=== PATIENT | female | born 1960 | race Caucasian/White ===

== ENCOUNTER → 2019-12-09 13:41 | Outpatient (CLI) | payer OTHER, SELFPAY ==
--- NOTE | 2019-12-09 | DI.MRI.S_ITS ---
PROCEDURE: MR SHOULDER RT WO CON INDICATIONS: Pain in right shoulder TECHNIQUE: Noncontrast oblique coronal T2 fast spin echo with fat saturation, oblique sagittal T1 spin echo and T2 fast spin echo with fat saturation, axial T1 spin echo and T2 fast spin echo with fat saturation through the shoulder. COMPARISON: None. FINDINGS: Image quality: Excellent. Rotator cuff: Tendinosis and low to moderate grade articular and bursal surface partial-thickness tear involving distal supraspinatus and infraspinatus at their insertions on humeral head is seen extending to musculotendinous junction. Distal subscapularis tendinosis or low-grade intrasubstance partial-thickness tear is also seen. Sagittal images demonstrate mild to moderate supraspinatus muscle atrophy. Bones and bursae: No bone marrow contusions or fractures. Mild to moderate acromioclavicular joint and glenohumeral joint osteoarthritic changes are seen with downward osteophyte formation compressing on musculotendinous junction of supraspinatus. No pathologic subacromial-subdeltoid or subcoracoid bursal fluid is present. Capsule and soft tissues: In the absence of intra-articular contrast, there is suggestion of focal superior anterior labral tear at 12 to 1:00 position. The glenohumeral ligaments appear intact. Tendinosis and low-grade partial-thickness tear involving proximal intra-articular portion of long head biceps tendon is seen. The rotator interval appears normal, without fibrosis. The coracohumeral ligament is normal in thickness. IMPRESSION: 1. Tendinosis and low to moderate grade articular and bursal surface partial-thickness tear involving distal supraspinatus and infraspinatus extending to musculotendinous junction. 2. Mild to moderate acromioclavicular joint and glenohumeral joint osteoarthritis. 3. Suggestion of focal superior anterior labral tear at 12 to 1:00 position. Suggestion of tendinosis and low-grade partial-thickness tear involving proximal intra-articular portion of long head biceps tendon. Dictated by: Dontrell Briscoe M.D. on 12/11/2019 at 14:59 Approved by: Dontrell Briscoe M.D. on 12/11/2019 at 15:06
== END ==
PROVIDERS: Family Provider Nutritionist; PCP Nutritionist; Visit Provider Physician Assistant
DX: M25.511 Pain in right shoulder (principal); M75.111 Incomplete rotator cuff tear or rupture of right shoulder, not specified as traumatic; M19.011 Primary osteoarthritis, right shoulder
CPT/HCPCS: 73221

== ENCOUNTER 2020-09-04 13:00 | Outpatient (RCR) | payer OTHER, SELFPAY ==
--- NOTE | 2020-05-29 17:49 | PT.OIE ---
Current Diagnoses Pain in right shoulder (05/29/20) Abnormal posture (05/29/20) Visit Care Team Role Provider Type Vale Tovar MD Family Provider Non-Staff Specialty: Family Practice Address: [address] [place] [address], [place], [address] Email: Steven Parks PA-C Attending Provider Non-Staff Primary Care Provider Referring Provider Specialty: Medical Address: [address] [place] [address], [id number] Email: Physical Therapy Initial Evaluation PT-OP-A Visit Information Start: 05/29/20 13:11 Freq: Status: Active Protocol: Document 05/29/20 13:14 AW (Rec: 05/29/20 13:21 AW [id number]) Out-Patient Physical Therapy Visit Information Visit Information Visit Type Initial Evaluation Visit Start Time 15:15 Visit Stop Time 16:00 Total Visit Minutes 45 Visit Number 1 Evaluation Information Evaluation Date 05/29/20 PT-OP-B Current Condition Start: 05/29/20 13:11 Freq: Status: Active Protocol: Document 05/29/20 13:14 AW (Rec: 05/29/20 13:21 AW [id number]) Current Condition History of Current Condition Onset Date 1.5 years ago Current Complaints right shoulder pain History of Current Condition Pt reports gradual onset right shoulder pain worsening over the past 1.5 years. She has chronic neck pain but I just live with it. She states she has had a forced period of rest for her shoulder due to COVID stay at home order. 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 She fears she may not have a job to return to which is increasing her stress. Pt reports increased pain with heavy lifting and overhead movement. It feels like my arm is going to fall out of the socket. She takes tramadol during day and methocarbamol at night which help with her pain. Her pain gets as bad as 10/10 and is affecting her sleep. She is unable to sleep on her right side at all. She has had some difficulty with upper body dressing tasks but this has improved somewhat with rest over the last few months She lives alone with her rat terrier. She has been doing gentle yoga at home with modifications for her shoulder . Prior Treatments and Tests -PT for neck 20 years ago -MRI 12/09/19 1. Tendinosis and low to moderate grade articular and bursal surface partial- thickness tear involving distal supraspinatus and infraspinatus extending to musculotendinous junction. 2. Mild to moderate acromioclavicular joint and glenohumeral joint osteoarthritis. 3. Suggestion of focal superior anterior labral tear at 12 to 1:00 position. Suggestion of tendinosis and low-grade partial-thickness tear involving proximal intra- articular portion of long head biceps tendon. Future Testing and Treatments Planned Pt is considering surgery Treatment Goals Patient/Caregiver Goals Pt hopes to improve her upper body strength. Ultimately, she hopes to avoid surgery, but she expresses skepticism about the efficacy of physical therapy. 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 Baseline Function- Recreation/Hobbies Yoga and light weightlifting at home PT-OP-C Subjective Start: 05/29/20 13:11 Freq: Status: Active Protocol: Document 05/29/20 13:14 AW (Rec: 05/30/20 17:32 AW [id number]) Patient Questionnaires Quick Dash- Upper Extremity Quick Dash UE Score 43 Quick Dash UE Impairment 40 to 59% Impaired (Score 40- 59) OP-PT Pain Assessment Pain Assessment Grid Paper Pain Assessment Grid Completed Yes Home Pain Medication Use Pain Medications Used Yes Home Pain Medication Frequency tramadol and methocarbamol Patient Goal reduce use Comments Pain Comments Pain centered around anterior right shoulder and upper chest wall/pec major and minor PT-OP-F Manual Assessment Start: 05/29/20 13:11 Freq: Status: Active Protocol: Document 05/29/20 13:14 AW (Rec: 05/30/20 17:32 AW [id number]) Manual Assessments Soft Tissue Assessment Soft Tissue Mobility Assessment Tight and tender to palpation at insertion of infraspinatus/ supraspinatus. Tender and painful pec major and minor Joint Mobility Assessment Joint Mobility Assessment Reduced and painful posterior glides R GH joint PT-OP-H Neuro Start: 05/29/20 13:11 Freq: Status: Active Protocol: Document 05/29/20 13:14 AW (Rec: 05/30/20 17:32 AW [id number]) Sensation Evaluation Gross Sensation Gross Sensation Left UE Impaired,Right UE Impaired Sensation Description Numbness,Tingling,Pins & [place] Comments Summary Comments Pt reports history of bilateral UE paresthesias but that they have improved over the years. Minimal complaints at this time. Deep Tendon Reflex & Clonus Assessment Deep Tendon Reflex Bilateral Tricep Deep Tendon Reflex 1+ Diminished Bilateral Bicep Deep Tendon Reflex 2+ Normal PT-OP-J Posture/Palpation/Skin Start: 05/29/20 13:11 Freq: Status: Active Protocol: Document 05/29/20 13:14 AW (Rec: 05/30/20 17:32 AW [id number]) Posture Evaluation Position Sitting Evaluation View posterior and lateral Head/C-Spine Posture Extended Shoulder Posture (L) Rounded,(R) Rounded,(L) Forward,(R) Forward Scapula Posture (L) Protracted,(R) Protracted, (L) Winged,(R) Winged Arm Posture (L) Internally Rotated,(R) Internally Rotated Comments Posture Comments Winged and protracted scapulae at rest. Rounded shoulders bilaterally. PT-OP-K Range of Motion Start: 05/29/20 13:11 Freq: Status: Active Protocol: Document 05/29/20 13:14 AW (Rec: 05/30/20 17:32 AW [id number]) Cervical Spine Range of Motion Cervical Spine Active Degrees Testing Position Sitting Flexion 40 Extension 40 Rotation Left 35 Rotation Right 40 Lateral Flexion Left 25 Lateral Flexion Right 25 ROM Limitations Soft Tissue Tightness Shoulder Goniometric Range of Motion Shoulder Right Active Flexion 155 Extension 30 Abduction 140 External Rotation at 90 degrees 60 Abduction Internal Rotation Behind Back (text) T10 Left Active Flexion 165 Extension 40 Abduction 165 External Rotation at 90 degrees 80 Abduction Internal Rotation Behind Back (text) T6 Shoulder ROM Limitations Shoulder ROM Limitations Pain Elbow/Forearm Range of Motion Elbow/Forearm ROM Limitations Comments Elbow AROM WNL PT-OP-L Special Tests Start: 05/29/20 13:11 Freq: Status: Active Protocol: Document 05/29/20 13:14 AW (Rec: 05/30/20 17:32 AW [id number]) Special Tests Shoulder Special Tests [place] Impingement Test Results R (+) Comments mildly painful with scapular stabilization. Also performed infraspinatus MMT which was positive on the right side for pain and painful arc which was positive on the right side. Drop Arm Rotator Cuff Test Results R (+) Comments able to hold but with shoulder shrugging and pain PT-OP-M Strength Start: 05/29/20 13:11 Freq: Status: Active Protocol: Document 05/29/20 13:14 AW (Rec: 05/30/20 17:32 AW [id number]) Scapula Strength Scapula Manual Muscle Testing Right Comments 4/5 protraction bilaterally Shoulder Strength Shoulder Manual Muscle Testing Right Flexion 4 Good Extension 4+ Good+ Abduction (C5) 4 Good External Rotation 4 Good Internal Rotation 4 Good Left Flexion 5 Normal Extension 5 Normal Abduction (C5) 5 Normal External Rotation 4+ Good+ Internal Rotation 5 Normal Elbow/Forearm Strength Elbow and Forearm Manual Muscle Testing Right Comments Grossly 4+/5 bilaterally PT-OP-Q Treatments Start: 05/29/20 13:11 Freq: Status: Active Protocol: Document 05/29/20 13:14 AW (Rec: 05/30/20 17:32 AW [id number]) Therapeutic Exercises Supine Exercises scapular protraction Supine Exercise Name scapular protraction Side bilateral Reps/Minutes 10 reps x 2 Comments no resistance in clinic but pt encouraged to use soup cans at home AAROM flexion Supine Exercise Name AAROM flexion Side right Equipment Used dowel Reps/Minutes 10 reps x 2 Comments cues to drive movement with left arm and to avoid painful ROM Sitting Exercises scapular retraction Sitting Exercise Name scapular retraction Side bilateral Reps/Minutes 10 reps x 2 Comments cues to gentle, sustainable movement and hold Self-Care/Home Management Treatment Education Patient Education Home Exercise Program Activities Self-Care/Home Management Activities - AAROM flexion R shoulder - supine scapular protraction - seated scapular retraction PT-OP-T Assessment and Plan Start: 05/29/20 13:11 Freq: Status: Active Protocol: Document 05/29/20 13:14 AW (Rec: 05/30/20 17:48 AW [id number]) Physical Therapy Assessment Rehab Potential Rehabilitation Potential Good Evaluation Complexity Number of Personal Factors/Comorbidities 1-2 Number of Body Systems Impaired 1-2 Clinical Presentation at Evaluation Stable Impairments Impairments Functional Activities,Pain, Posture,ROM,Sensation,Soft Tissue Mobility,Strength Other Concerns Barriers to Rehabilitation Pt expresses skepticism regarding efficacy of physical therapy and believes surgery may be her best option. Goals Four Impairment sleep Short Term Goal (STG) Pt will implement sleep positioning strategies for reduced pain and improved restfulness of sleep STG Duration 06/26/20 Three Impairment pt unable to participate in yoga and other desired activities due to pain Short Term Goal (STG) Pt will be independent with [facility] for support of therapy services provide in clinic STG Duration 06/26/20 Fdc Goal (LTG) Pt will be able to tolerate prone and quadruped yoga poses with modifications without increasing pain LTG Duration 07/24/20 Two Impairment pt scores 43% impairment on quickDASH Short Term Goal (STG) Pt will score 35% impairment or lower for improved ability to return to work STG Duration 06/26/20 Fdc Goal (LTG) Pt will score 25% impairment or lower for improved ability to return to work LTG Duration 07/24/20 One Impairment ROM Short Term Goal (STG) Pt will improve pain-free R GH abduction to 150 or greater to demonstrate improved ability to participate in daily activities. STG Duration 06/26/20 Stock And Station Agent Goal (LTG) Pt will improve pain-free R GH abduction to 160 or greater to demonstrate improved ability to participate in daily activities. LTG Duration 07/24/20 Assessment Summary Assessment Anjali is a 60 yo woman seen for PT evaluation in the outpatient setting with complaints of gradual onset right shoulder pain. 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 She believes the forced rest over the past few months of layoffs has improved her shoulder mobility and reduced her pain, but she would like to regain full function of her shoulder to improve her ability to perform job duties and to participate in recreational activities such as yoga which have a positive impact on her sense of well-being. Pt will benefit from outpatient PT to restore range of motion, strength, and function in her right shoulder. Physical Therapy Plan Frequency and Duration Frequency of Treatment 1-2x/week Duration of Treatment up to 15 visits per current [place] authorization Plan of Care Start Date 05/29/20 Plan of Care End Date 07/24/20 Therapeutic Interventions Therapeutic Interventions Home Exercise Program,Joint Mobilizations,Manual Therapy, Neuromuscular Re-education, Patient/Caregiver Education, Soft Tissue Mobilization, Taping,Therapeutic Activities, Therapeutic Exercises Modalities Cold Pack/Ice Massage,Hot Packs Next Visit Focus/Plan Next Note Type Treatment Note Next Visit Plan assess response to HEP provided at eval; joint mobilization for right shoulder posterior and inferior glide; ther ex as tolerated for ROM and strength
--- NOTE | 2020-05-29 17:50 | PT.OPPOC ---
Physical, Occupational & Speech Therapy At [facility] Current Diagnoses Pain in right shoulder (05/29/20) Abnormal posture (05/29/20) Visit Care Team Role Provider Type Vale Tovar MD Family Provider Non-Staff Specialty: Family Practice Address: [address] [place] [address], [address] Email: Steven Parks PA-C Attending Provider Non-Staff Primary Care Provider Referring Provider Specialty: Medical Address: [address] [place] [address], [id number] Email: Plan Of Care PT-OP-T Assessment and Plan Start: 05/29/20 13:11 Freq: Status: Active Protocol: Document 05/29/20 13:14 AW (Rec: 05/30/20 17:48 AW [id number]) Physical Therapy Assessment Rehab Potential Rehabilitation Potential Good Evaluation Complexity Number of Personal Factors/Comorbidities 1-2 Number of Body Systems Impaired 1-2 Clinical Presentation at Evaluation Stable Impairments Impairments Functional Activities,Pain, Posture,ROM,Sensation,Soft Tissue Mobility,Strength Other Concerns Barriers to Rehabilitation Pt expresses skepticism regarding efficacy of physical therapy and believes surgery may be her best option. Goals Four Impairment sleep Short Term Goal (STG) Pt will implement sleep positioning strategies for reduced pain and improved restfulness of sleep STG Duration 06/26/20 Three Impairment pt unable to participate in yoga and other desired activities due to pain Short Term Goal (STG) Pt will be independent with [facility] for support of therapy services provide in clinic STG Duration 06/26/20 Fpc Goal (LTG) Pt will be able to tolerate prone and quadruped yoga poses with modifications without increasing pain LTG Duration 07/24/20 Two Impairment pt scores 43% impairment on quickDASH Short Term Goal (STG) Pt will score 35% impairment or lower for improved ability to return to work STG Duration 06/26/20 Fpc Goal (LTG) Pt will score 25% impairment or lower for improved ability to return to work LTG Duration 07/24/20 One Impairment ROM Short Term Goal (STG) Pt will improve pain-free R GH abduction to 150 or greater to demonstrate improved ability to participate in daily activities. STG Duration 06/26/20 Can Closing Machine Operator Goal (LTG) Pt will improve pain-free R GH abduction to 160 or greater to demonstrate improved ability to participate in daily activities. LTG Duration 07/24/20 Assessment Summary Assessment Anjali is a 60 yo woman seen for PT evaluation in the outpatient setting with complaints of gradual onset right shoulder pain. 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 She believes the forced rest over the past few months of layoffs has improved her shoulder mobility and reduced her pain, but she would like to regain full function of her shoulder to improve her ability to perform job duties and to participate in recreational activities such as yoga which have a positive impact on her sense of well-being. Pt will benefit from outpatient PT to restore range of motion, strength, and function in her right shoulder. Physical Therapy Plan Frequency and Duration Frequency of Treatment 1-2x/week Duration of Treatment up to 15 visits per current [place] Plan of Care Start Date 05/29/20 Plan of Care End Date 07/24/20 Therapeutic Interventions Therapeutic Interventions Home Exercise Program,Joint Mobilizations,Manual Therapy, Neuromuscular Re-education, Patient/Caregiver Education, Soft Tissue Mobilization, Taping,Therapeutic Activities, Therapeutic Exercises Modalities Cold Pack/Ice Massage,Hot Packs Next Visit Focus/Plan Next Note Type Treatment Note Next Visit Plan assess response to HEP provided at eval; joint mobilization for right shoulder posterior and inferior glide; ther ex as tolerated for ROM and strength Plan of Care Dates Plan of Care Start Date 05/29/20 Plan of Care End Date 07/24/20 Electronically Signed by: Crystal Trejo PT 05/30/20 [id number] Please Sign and Return: I have reviewed this Plan of Care and certify that the skilled therapy services above are required to meet the patient?s needs. Physician Signature Date Printed Name and Credentials Clinical Instructor Signature Printed Name and Credentials
--- NOTE | 2020-05-30 17:50 | PT.OPPOC ---
Physical, Occupational & Speech Therapy At [facility] Current Diagnoses Pain in right shoulder (05/29/20) Abnormal posture (05/29/20) Visit Care Team Role Provider Type Vale Tovar MD Family Provider Non-Staff Specialty: Family Practice Address: [address] [place] [address], [id number] Email: Steven Parks PA-C Attending Provider Non-Staff Primary Care Provider Referring Provider Specialty: Medical Address: [address] [place] [address], [address] Email: Plan Of Care PT-OP-T Assessment and Plan Start: 05/29/20 13:11 Freq: Status: Active Protocol: Document 05/29/20 13:14 AW (Rec: 05/30/20 17:48 AW [id number]) Physical Therapy Assessment Rehab Potential Rehabilitation Potential Good Evaluation Complexity Number of Personal Factors/Comorbidities 1-2 Number of Body Systems Impaired 1-2 Clinical Presentation at Evaluation Stable Impairments Impairments Functional Activities,Pain, Posture,ROM,Sensation,Soft Tissue Mobility,Strength Other Concerns Barriers to Rehabilitation Pt expresses skepticism regarding efficacy of physical therapy and believes surgery may be her best option. Goals Four Impairment sleep Short Term Goal (STG) Pt will implement sleep positioning strategies for reduced pain and improved restfulness of sleep STG Duration 06/26/20 Three Impairment pt unable to participate in yoga and other desired activities due to pain Short Term Goal (STG) Pt will be independent with [facility] for support of therapy services provide in clinic STG Duration 06/26/20 Correction Goal (LTG) Pt will be able to tolerate prone and quadruped yoga poses with modifications without increasing pain LTG Duration 07/24/20 Two Impairment pt scores 43% impairment on quickDASH Short Term Goal (STG) Pt will score 35% impairment or lower for improved ability to return to work STG Duration 06/26/20 Correction Goal (LTG) Pt will score 25% impairment or lower for improved ability to return to work LTG Duration 07/24/20 One Impairment ROM Short Term Goal (STG) Pt will improve pain-free R GH abduction to 150 or greater to demonstrate improved ability to participate in daily activities. STG Duration 06/26/20 Patrol Supervisor Goal (LTG) Pt will improve pain-free R GH abduction to 160 or greater to demonstrate improved ability to participate in daily activities. LTG Duration 07/24/20 Assessment Summary Assessment Anjali is a 60 yo woman seen for PT evaluation in the outpatient setting with complaints of gradual onset right shoulder pain. 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 She believes the forced rest over the past few months of layoffs has improved her shoulder mobility and reduced her pain, but she would like to regain full function of her shoulder to improve her ability to perform job duties and to participate in recreational activities such as yoga which have a positive impact on her sense of well-being. Pt will benefit from outpatient PT to restore range of motion, strength, and function in her right shoulder. Physical Therapy Plan Frequency and Duration Frequency of Treatment 1-2x/week Duration of Treatment up to 15 visits per current [place] Plan of Care Start Date 05/29/20 Plan of Care End Date 07/24/20 Therapeutic Interventions Therapeutic Interventions Home Exercise Program,Joint Mobilizations,Manual Therapy, Neuromuscular Re-education, Patient/Caregiver Education, Soft Tissue Mobilization, Taping,Therapeutic Activities, Therapeutic Exercises Modalities Cold Pack/Ice Massage,Hot Packs Next Visit Focus/Plan Next Note Type Treatment Note Next Visit Plan assess response to HEP provided at eval; joint mobilization for right shoulder posterior and inferior glide; ther ex as tolerated for ROM and strength Plan of Care Dates Plan of Care Start Date 05/29/20 Plan of Care End Date 07/24/20 Electronically Signed by: Crystal Trejo PT 05/30/20 [id number] Please Sign and Return: I have reviewed this Plan of Care and certify that the skilled therapy services above are required to meet the patient?s needs. Physician Signature Date Printed Name and Credentials Clinical Instructor Signature Printed Name and Credentials
--- NOTE | 2020-05-31 09:07 | PT.OTN ---
Current Diagnoses Pain in right shoulder (05/31/20) Abnormal posture (05/31/20) Physical Therapy Treatment Note PT-OP-A Visit Information Start: 05/29/20 13:11 Freq: Status: Active Protocol: Document 05/31/20 08:15 LRN (Rec: 05/31/20 08:50 LRN [id number]) Out-Patient Physical Therapy Visit Information Visit Information Visit Type Treatment Note Visit Start Time 08:15 Visit Stop Time 09:00 Total Visit Minutes 45 Visit Number 2 Evaluation Information Evaluation Date 05/29/20 PT-OP-B Current Condition Start: 05/29/20 13:11 Freq: Status: Active Protocol: Document 05/29/20 13:14 AW (Rec: 05/29/20 13:21 AW [id number]) Current Condition History of Current Condition Onset Date 1.5 years ago Current Complaints right shoulder pain History of Current Condition Pt reports gradual onset right shoulder pain worsening over the past 1.5 years. She has chronic neck pain but I just live with it. She states she has had a forced period of rest for her shoulder due to COVID stay at home order. 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 She fears she may not have a job to return to which is increasing her stress. Pt reports increased pain with heavy lifting and overhead movement. It feels like my arm is going to fall out of the socket. She takes tramadol during day and methocarbamol at night which help with her pain. Her pain gets as bad as 10/10 and is affecting her sleep. She is unable to sleep on her right side at all. She has had some difficulty with upper body dressing tasks but this has improved somewhat with rest over the last few months She lives alone with her rat terrier. She has been doing gentle yoga at home with modifications for her shoulder . Prior Treatments and Tests -PT for neck 20 years ago -MRI 12/09/19 1. Tendinosis and low to moderate grade articular and bursal surface partial- thickness tear involving distal supraspinatus and infraspinatus extending to musculotendinous junction. 2. Mild to moderate acromioclavicular joint and glenohumeral joint osteoarthritis. 3. Suggestion of focal superior anterior labral tear at 12 to 1:00 position. Suggestion of tendinosis and low-grade partial-thickness tear involving proximal intra- articular portion of long head biceps tendon. Future Testing and Treatments Planned Pt is considering surgery Treatment Goals Patient/Caregiver Goals Pt hopes to improve her upper body strength. Ultimately, she hopes to avoid surgery, but she expresses skepticism about the efficacy of physical therapy. 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 Sore. 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 PT-OP-F Manual Assessment Start: 05/29/20 13:11 Freq: Status: Active Protocol: Document 05/29/20 13:14 AW (Rec: 05/30/20 17:32 AW [id number]) Manual Assessments Soft Tissue Assessment Soft Tissue Mobility Assessment Tight and tender to palpation at insertion of infraspinatus/ supraspinatus. Tender and painful pec major and minor Joint Mobility Assessment Joint Mobility Assessment Reduced and painful posterior glides R GH joint PT-OP-H Neuro Start: 05/29/20 13:11 Freq: Status: Active Protocol: Document 05/29/20 13:14 AW (Rec: 05/30/20 17:32 AW [id number]) Sensation Evaluation Gross Sensation Gross Sensation Left UE Impaired,Right UE Impaired Sensation Description Numbness,Tingling,Pins & [place] Comments Summary Comments Pt reports history of bilateral UE paresthesias but that they have improved over the years. Minimal complaints at this time. Deep Tendon Reflex & Clonus Assessment Deep Tendon Reflex Bilateral Tricep Deep Tendon Reflex 1+ Diminished Bilateral Bicep Deep Tendon Reflex 2+ Normal PT-OP-J Posture/Palpation/Skin Start: 05/29/20 13:11 Freq: Status: Active Protocol: Document 05/29/20 13:14 AW (Rec: 05/30/20 17:32 AW [id number]) Posture Evaluation Position Sitting Evaluation View posterior and lateral Head/C-Spine Posture Extended Shoulder Posture (L) Rounded,(R) Rounded,(L) Forward,(R) Forward Scapula Posture (L) Protracted,(R) Protracted, (L) Winged,(R) Winged Arm Posture (L) Internally Rotated,(R) Internally Rotated Comments Posture Comments Winged and protracted scapulae at rest. Rounded shoulders bilaterally. PT-OP-K Range of Motion Start: 05/29/20 13:11 Freq: Status: Active Protocol: Document 05/29/20 13:14 AW (Rec: 05/30/20 17:32 AW [id number]) Cervical Spine Range of Motion Cervical Spine Active Degrees Testing Position Sitting Flexion 40 Extension 40 Rotation Left 35 Rotation Right 40 Lateral Flexion Left 25 Lateral Flexion Right 25 ROM Limitations Soft Tissue Tightness Shoulder Goniometric Range of Motion Shoulder Right Active Flexion 155 Extension 30 Abduction 140 External Rotation at 90 degrees 60 Abduction Internal Rotation Behind Back (text) T10 Left Active Flexion 165 Extension 40 Abduction 165 External Rotation at 90 degrees 80 Abduction Internal Rotation Behind Back (text) T6 Shoulder ROM Limitations Shoulder ROM Limitations Pain Elbow/Forearm Range of Motion Elbow/Forearm ROM Limitations Comments Elbow AROM WNL PT-OP-L Special Tests Start: 05/29/20 13:11 Freq: Status: Active Protocol: Document 05/29/20 13:14 AW (Rec: 05/30/20 17:32 AW [id number]) Special Tests Shoulder Special Tests Bishop Tommy Impingement Test Results R (+) Comments mildly painful with scapular stabilization. Also performed infraspinatus MMT which was positive on the right side for pain and painful arc which was positive on the right side. Drop Arm Rotator Cuff Test Results R (+) Comments able to hold but with shoulder shrugging and pain PT-OP-M Strength Start: 05/29/20 13:11 Freq: Status: Active Protocol: Document 05/29/20 13:14 AW (Rec: 05/30/20 17:32 AW [id number]) Scapula Strength Scapula Manual Muscle Testing Right Comments 4/5 protraction bilaterally Shoulder Strength Shoulder Manual Muscle Testing Right Flexion 4 Good Extension 4+ Good+ Abduction (C5) 4 Good External Rotation 4 Good Internal Rotation 4 Good Left Flexion 5 Normal Extension 5 Normal Abduction (C5) 5 Normal External Rotation 4+ Good+ Internal Rotation 5 Normal Elbow/Forearm Strength Elbow and Forearm Manual Muscle Testing Right Comments Grossly 4+/5 bilaterally PT-OP-Q Treatments Start: 05/29/20 13:11 Freq: Status: Active Protocol: Document 05/31/20 08:15 LRN (Rec: 05/31/20 08:50 LRN [id number]) Therapeutic Exercises Supine Exercises Chest press Supine Exercise Name Chest press Side bilateral Reps/Minutes 12x Comments Pt was stopped due to pain Windshield wipe Supine Exercise Name Active shoulder ER/IR Side right Reps/Minutes 3' Comments Moving slowly and cautiously Shoulder ER Supine Exercise Name Cane stretch Side right Reps/Minutes 3' Comments Cues to avoid pain, training for limit of range. scapular protraction Supine Exercise Name scapular protraction Side right Reps/Minutes 10 reps x 2 Comments no resistance in clinic but pt encouraged to use soup cans at home AAROM flexion Supine Exercise Name AAROM flexion Side right Equipment Used dowel Reps/Minutes 10 Hold x 10 Comments cues to drive movement with left arm and to avoid painful ROM Sitting Exercises scapular retraction Sitting Exercise Name scapular retraction Side bilateral Reps/Minutes 10 reps x 2 Comments cues to gentle, sustainable movement and hold PT-OP-R Modalities Start: 05/29/20 13:11 Freq: Status: Active Protocol: Document 05/31/20 08:15 LRN (Rec: 05/31/20 08:52 LRN [id number]) Ultrasound Therapy Treatment Right Anterior Shoulder Treatment Duration (minutes) 8 Patient Position Supine Coupling Medium Ultrasound Gel Frequency Setting (mHz) 3 Mode Setting Pulsed Duty Cycle 50% Intensity Setting (w/cm2) 1.0 PT-OP-T Assessment and Plan Start: 05/29/20 13:11 Freq: Status: Active Protocol: Document 05/31/20 08:15 LRN (Rec: 05/31/20 08:50 LRN [id number]) Physical Therapy Assessment Goals Four Impairment sleep Short Term Goal (STG) Pt will implement sleep positioning strategies for reduced pain and improved restfulness of sleep STG Duration 06/26/20 Three Impairment pt unable to participate in yoga and other desired activities due to pain Short Term Goal (STG) Pt will be independent with HEP for support of therapy services provide in clinic STG Duration 06/26/20 Retirement Goal (LTG) Pt will be able to tolerate prone and quadruped yoga poses with modifications without increasing pain LTG Duration 07/24/20 Two Impairment pt scores 43% impairment on quickDASH Short Term Goal (STG) Pt will score 35% impairment or lower for improved ability to return to work STG Duration 06/26/20 Retirement Goal (LTG) Pt will score 25% impairment or lower for improved ability to return to work LTG Duration 07/24/20 One Impairment ROM Short Term Goal (STG) Pt will improve pain-free R GH abduction to 150 or greater to demonstrate improved ability to participate in daily activities. 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 LTG Duration 07/24/20 Assessment Summary Assessment Good tolerance to HEP. Improved mobility after ultrasound. Pt feels R UT is increased in temp; therefore US may be helpful there. Physical Therapy Plan Frequency and Duration Frequency of Treatment 1-2x/week Duration of Treatment up to 15 visits per current [facility] authorization Plan of Care Start Date 05/29/20 Plan of Care End Date 07/24/20 Next Visit Focus/Plan Next Note Type Treatment Note Next Visit Plan assess response to new ex's ( supine windshield wipe & chest press); ?joint mobilization for right shoulder posterior and inferior glide; ther ex as tolerated for ROM and strength. Try US to R UT and anterior shoulder for pain.
--- NOTE | 2020-06-03 08:40 | PT-OP ANOTE ---
Pt did not show for today's appt, called and pt stated over slept and had shingle vaccination last fri sore and still recovering form. Confirmed next appt 06/06/20.
--- NOTE | 2020-06-06 09:00 | PT.OTN ---
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 She has chronic neck pain but I just live with it. She states she has had a forced period of rest for her shoulder due to COVID stay at home order. 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 She fears she may not have a job to return to which is increasing her stress. Pt reports increased pain with heavy lifting and overhead movement. It feels like my arm is going to fall out of the socket. She takes tramadol during day and methocarbamol at night which help with her pain. Her pain gets as bad as 10/10 and is affecting her sleep. She is unable to sleep on her right side at all. She has had some difficulty with upper body dressing tasks but this has improved somewhat with rest over the last few months She lives alone with her rat terrier. She has been doing gentle yoga at home with modifications for her shoulder . Prior Treatments and Tests -PT for neck 20 years ago -MRI 12/09/19 1. Tendinosis and low to moderate grade articular and bursal surface partial- thickness tear involving distal supraspinatus and infraspinatus extending to musculotendinous junction. 2. Mild to moderate acromioclavicular joint and glenohumeral joint osteoarthritis. 3. Suggestion of focal superior anterior labral tear at 12 to 1:00 position. Suggestion of tendinosis and low-grade partial-thickness tear involving proximal intra- articular portion of long head biceps tendon. Future Testing and Treatments Planned Pt is considering surgery Treatment Goals Patient/Caregiver Goals Pt hopes to improve her upper body strength. Ultimately, she hopes to avoid surgery, but she expresses skepticism about the efficacy of physical therapy. 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 Not been compliant with HEP. [place] US was very helpful last tx. PT-OP-F Manual Assessment Start: 05/29/20 13:11 Freq: Status: Active Protocol: Document 05/29/20 13:14 AW (Rec: 05/30/20 17:32 AW [id number]) Manual Assessments Soft Tissue Assessment Soft Tissue Mobility Assessment Tight and tender to palpation at insertion of infraspinatus/ supraspinatus. Tender and painful pec major and minor Joint Mobility Assessment Joint Mobility Assessment Reduced and painful posterior glides R GH joint PT-OP-H Neuro Start: 05/29/20 13:11 Freq: Status: Active Protocol: Document 05/29/20 13:14 AW (Rec: 05/30/20 17:32 AW [id number]) Sensation Evaluation Gross Sensation Gross Sensation Left UE Impaired,Right UE Impaired Sensation Description Numbness,Tingling,Pins & [place] Comments Summary Comments Pt reports history of bilateral UE paresthesias but that they have improved over the years. Minimal complaints at this time. Deep Tendon Reflex & Clonus Assessment Deep Tendon Reflex Bilateral Tricep Deep Tendon Reflex 1+ Diminished Bilateral Bicep Deep Tendon Reflex 2+ Normal PT-OP-J Posture/Palpation/Skin Start: 05/29/20 13:11 Freq: Status: Active Protocol: Document 05/29/20 13:14 AW (Rec: 05/30/20 17:32 AW [id number]) Posture Evaluation Position Sitting Evaluation View posterior and lateral Head/C-Spine Posture Extended Shoulder Posture (L) Rounded,(R) Rounded,(L) Forward,(R) Forward Scapula Posture (L) Protracted,(R) Protracted, (L) Winged,(R) Winged Arm Posture (L) Internally Rotated,(R) Internally Rotated Comments Posture Comments Winged and protracted scapulae at rest. Rounded shoulders bilaterally. PT-OP-K Range of Motion Start: 05/29/20 13:11 Freq: Status: Active Protocol: Document 05/29/20 13:14 AW (Rec: 05/30/20 17:32 AW [id number]) Cervical Spine Range of Motion Cervical Spine Active Degrees Testing Position Sitting Flexion 40 Extension 40 Rotation Left 35 Rotation Right 40 Lateral Flexion Left 25 Lateral Flexion Right 25 ROM Limitations Soft Tissue Tightness Shoulder Goniometric Range of Motion Shoulder Right Active Flexion 155 Extension 30 Abduction 140 External Rotation at 90 degrees 60 Abduction Internal Rotation Behind Back (text) T10 Left Active Flexion 165 Extension 40 Abduction 165 External Rotation at 90 degrees 80 Abduction Internal Rotation Behind Back (text) T6 Shoulder ROM Limitations Shoulder ROM Limitations Pain Elbow/Forearm Range of Motion Elbow/Forearm ROM Limitations Comments Elbow AROM WNL PT-OP-L Special Tests Start: 05/29/20 13:11 Freq: Status: Active Protocol: Document 05/29/20 13:14 AW (Rec: 05/30/20 17:32 AW [id number]) Special Tests Shoulder Special Tests Bishop Tommy Impingement Test Results R (+) Comments mildly painful with scapular stabilization. Also performed infraspinatus MMT which was positive on the right side for pain and painful arc which was positive on the right side. Drop Arm Rotator Cuff Test Results R (+) Comments able to hold but with shoulder shrugging and pain PT-OP-M Strength Start: 05/29/20 13:11 Freq: Status: Active Protocol: Document 05/29/20 13:14 AW (Rec: 05/30/20 17:32 AW [id number]) Scapula Strength Scapula Manual Muscle Testing Right Comments 4/5 protraction bilaterally Shoulder Strength Shoulder Manual Muscle Testing Right Flexion 4 Good Extension 4+ Good+ Abduction (C5) 4 Good External Rotation 4 Good Internal Rotation 4 Good Left Flexion 5 Normal Extension 5 Normal Abduction (C5) 5 Normal External Rotation 4+ Good+ Internal Rotation 5 Normal Elbow/Forearm Strength Elbow and Forearm Manual Muscle Testing Right Comments Grossly 4+/5 bilaterally PT-OP-Q Treatments Start: 05/29/20 13:11 Freq: Status: Active Protocol: Document 06/06/20 08:21 SP (Rec: 06/06/20 09:04 SP [id number]) Therapeutic Exercises Supine Exercises Chest press Supine Exercise Name Chest press Side bilateral Reps/Minutes 12x Comments Pt was stopped due to pain Windshield wipe Supine Exercise Name Active shoulder ER/IR hold Towel roll trunk arm Side right Reps/Minutes 3' Comments Moving slowly and cautiously Shoulder ER Supine Exercise Name Cane stretch Side right Reps/Minutes 3' Comments Cues to avoid pain, training for limit of range. scapular protraction Supine Exercise Name scapular protraction Side right Reps/Minutes 10 reps x 2 Comments no resistance in clinic but pt encouraged to use soup cans at home AAROM flexion Supine Exercise Name AAROM flexion Side right Equipment Used dowel Reps/Minutes 10 Hold x 10 Comments cues to drive movement with left arm and to avoid painful ROM Sitting Exercises pulleys Sitting Exercise Name FF, ABD Side right Reps/Minutes x10 each scapular retraction Sitting Exercise Name scapular retraction Side bilateral Reps/Minutes 10 reps x 2 Comments cues to gentle, sustainable movement and hold PT-OP-R Modalities Start: 05/29/20 13:11 Freq: Status: Active Protocol: Document 05/31/20 08:15 LRN (Rec: 05/31/20 08:52 LRN [id number]) Ultrasound Therapy Treatment Right Anterior Shoulder Treatment Duration (minutes) 8 Patient Position Supine Coupling Medium Ultrasound Gel Frequency Setting (mHz) 3 Mode Setting Pulsed Duty Cycle 50% Intensity Setting (w/cm2) 1.0 PT-OP-T Assessment and Plan Start: 05/29/20 13:11 Freq: Status: Active Protocol: Document 06/06/20 08:21 SP (Rec: 06/06/20 09:04 SP [id number]) Physical Therapy Assessment Goals Four Impairment sleep Short Term Goal (STG) Pt will implement sleep positioning strategies for reduced pain and improved restfulness of sleep STG Duration 06/26/20 Three Impairment pt unable to participate in yoga and other desired activities due to pain Short Term Goal (STG) Pt will be independent with [facility] for support of therapy services provide in clinic STG Duration 06/26/20 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 STG Duration 06/26/20 Fpc Goal (LTG) Pt will improve pain-free R GH abduction to 160 or greater to demonstrate improved ability to participate in daily activities. LTG Duration 07/24/20 Assessment Summary Assessment Tx focused on HEP review with cuing for scap and humeral positioning to decrease medial rotation compensations. Provided hand outs for recall and proper form carryover with good response of was helpful. Pt stated [facility] provided request of H wave stim unit, she will look into to assist with comfort. Pt reported no pain during activity today. Physical Therapy Plan Frequency and Duration Frequency of Treatment 1-2x/week Duration of Treatment up to 15 visits per current [facility] authorization Plan of Care Start Date 05/29/20 Plan of Care End Date 07/24/20 Therapeutic Interventions Therapeutic Interventions Home Exercise Program,Joint Mobilizations,Manual Therapy, Neuromuscular Re-education, Patient/Caregiver Education, Soft Tissue Mobilization, Taping,Therapeutic Activities, Therapeutic Exercises Modalities Cold Pack/Ice Massage,Hot Packs Next Visit Focus/Plan Next Note Type Treatment Note Next Visit Plan Assess reponse to last tx review of HEP. Next tx possible warm up pulleys, UBE if tolerance ROM only. Continue per PT POC suggestions: ?joint mobilization for right shoulder posterior and inferior glide; ther ex as tolerated for ROM and strength . Try US to R UT and anterior shoulder for pain.
--- NOTE | 2020-06-17 08:15 | PT.OTN ---
Current Diagnoses Pain in right shoulder (06/17/20) Abnormal posture (06/17/20) Physical Therapy Treatment Note PT-OP-A Visit Information Start: 05/29/20 13:11 Freq: Status: Active Protocol: Document 06/17/20 07:31 SP (Rec: 06/17/20 08:40 SP [id number]) Out-Patient Physical Therapy Visit Information Visit Information Visit Type Treatment Note Visit Start Time 07:31 Visit Stop Time 08:15 Total Visit Minutes 44 Visit Number 4 Number of ELECTRIC METER INSTALLER Visits 2 PT-OP-B Current Condition Start: 05/29/20 13:11 Freq: Status: Active Protocol: Document 05/29/20 13:14 AW (Rec: 05/29/20 13:21 AW [id number]) Current Condition History of Current Condition Onset Date 1.5 years ago Current Complaints right shoulder pain History of Current Condition Pt reports gradual onset right shoulder pain worsening over the past 1.5 years. She has chronic neck pain but I just live with it. She states she has had a forced period of rest for her shoulder due to COVID stay at home order. 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 She fears she may not have a job to return to which is increasing her stress. Pt reports increased pain with heavy lifting and overhead movement. It feels like my arm is going to fall out of the socket. She takes tramadol during day and methocarbamol at night which help with her pain. Her pain gets as bad as 10/10 and is affecting her sleep. She is unable to sleep on her right side at all. She has had some difficulty with upper body dressing tasks but this has improved somewhat with rest over the last few months She lives alone with her rat terrier. She has been doing gentle yoga at home with modifications for her shoulder . Prior Treatments and Tests -PT for neck 20 years ago -MRI 12/09/19 1. Tendinosis and low to moderate grade articular and bursal surface partial- thickness tear involving distal supraspinatus and infraspinatus extending to musculotendinous junction. 2. Mild to moderate acromioclavicular joint and glenohumeral joint osteoarthritis. 3. Suggestion of focal superior anterior labral tear at 12 to 1:00 position. Suggestion of tendinosis and low-grade partial-thickness tear involving proximal intra- articular portion of long head biceps tendon. Future Testing and Treatments Planned Pt is considering surgery Treatment Goals Patient/Caregiver Goals Pt hopes to improve her upper body strength. Ultimately, she hopes to avoid surgery, but she expresses skepticism about the efficacy of physical therapy. 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 Pt also reported feels like her R shld is going to slide out of it joint, arm fall off. Pt reported the exercises laying down seem easy with no adverse affects, wanting more can do at home. PT-OP-F Manual Assessment Start: 05/29/20 13:11 Freq: Status: Active Protocol: Document 05/29/20 13:14 AW (Rec: 05/30/20 17:32 AW [id number]) Manual Assessments Soft Tissue Assessment Soft Tissue Mobility Assessment Tight and tender to palpation at insertion of infraspinatus/ supraspinatus. Tender and painful pec major and minor Joint Mobility Assessment Joint Mobility Assessment Reduced and painful posterior glides R GH joint PT-OP-H Neuro Start: 05/29/20 13:11 Freq: Status: Active Protocol: Document 05/29/20 13:14 AW (Rec: 05/30/20 17:32 AW [id number]) Sensation Evaluation Gross Sensation Gross Sensation Left UE Impaired,Right UE Impaired Sensation Description Numbness,Tingling,Pins & [place] Comments Summary Comments Pt reports history of bilateral UE paresthesias but that they have improved over the years. Minimal complaints at this time. Deep Tendon Reflex & Clonus Assessment Deep Tendon Reflex Bilateral Tricep Deep Tendon Reflex 1+ Diminished Bilateral Bicep Deep Tendon Reflex 2+ Normal PT-OP-J Posture/Palpation/Skin Start: 05/29/20 13:11 Freq: Status: Active Protocol: Document 05/29/20 13:14 AW (Rec: 05/30/20 17:32 AW [id number]) Posture Evaluation Position Sitting Evaluation View posterior and lateral Head/C-Spine Posture Extended Shoulder Posture (L) Rounded,(R) Rounded,(L) Forward,(R) Forward Scapula Posture (L) Protracted,(R) Protracted, (L) Winged,(R) Winged Arm Posture (L) Internally Rotated,(R) Internally Rotated Comments Posture Comments Winged and protracted scapulae at rest. Rounded shoulders bilaterally. PT-OP-K Range of Motion Start: 05/29/20 13:11 Freq: Status: Active Protocol: Document 05/29/20 13:14 AW (Rec: 05/30/20 17:32 AW [id number]) Cervical Spine Range of Motion Cervical Spine Active Degrees Testing Position Sitting Flexion 40 Extension 40 Rotation Left 35 Rotation Right 40 Lateral Flexion Left 25 Lateral Flexion Right 25 ROM Limitations Soft Tissue Tightness Shoulder Goniometric Range of Motion Shoulder Right Active Flexion 155 Extension 30 Abduction 140 External Rotation at 90 degrees 60 Abduction Internal Rotation Behind Back (text) T10 Left Active Flexion 165 Extension 40 Abduction 165 External Rotation at 90 degrees 80 Abduction Internal Rotation Behind Back (text) T6 Shoulder ROM Limitations Shoulder ROM Limitations Pain Elbow/Forearm Range of Motion Elbow/Forearm ROM Limitations Comments Elbow AROM WNL PT-OP-L Special Tests Start: 05/29/20 13:11 Freq: Status: Active Protocol: Document 05/29/20 13:14 AW (Rec: 05/30/20 17:32 AW [id number]) Special Tests Shoulder Special Tests Bishop Tommy Impingement Test Results R (+) Comments mildly painful with scapular stabilization. Also performed infraspinatus MMT which was positive on the right side for pain and painful arc which was positive on the right side. Drop Arm Rotator Cuff Test Results R (+) Comments able to hold but with shoulder shrugging and pain PT-OP-M Strength Start: 05/29/20 13:11 Freq: Status: Active Protocol: Document 05/29/20 13:14 AW (Rec: 05/30/20 17:32 AW [id number]) Scapula Strength Scapula Manual Muscle Testing Right Comments 4/5 protraction bilaterally Shoulder Strength Shoulder Manual Muscle Testing Right Flexion 4 Good Extension 4+ Good+ Abduction (C5) 4 Good External Rotation 4 Good Internal Rotation 4 Good Left Flexion 5 Normal Extension 5 Normal Abduction (C5) 5 Normal External Rotation 4+ Good+ Internal Rotation 5 Normal Elbow/Forearm Strength Elbow and Forearm Manual Muscle Testing Right Comments Grossly 4+/5 bilaterally PT-OP-Q Treatments Start: 05/29/20 13:11 Freq: Status: Active Protocol: Document 06/17/20 07:31 SP (Rec: 06/17/20 08:40 SP [id number]) Therapeutic Exercises Supine Exercises AAROM flexion Supine Exercise Name ROM bridge off ball Side right Equipment Used bridge off ball (see pic hand out) Reps/Minutes x10 R x5 then B parrallel Comments cued head& shlds supported, glut facilitation with PPT Standing Exercises shld ER band Side bilateral Equipment Used Lv 1 Reps/Minutes 2x5 Comments cued scap retract/depress, PPT to front- 45deg Rows, extension Resistance Lv 1 Reps/Minutes 2x5 Comments Cued scap retraction/ depression with neutral spine (PPT) slow arms to side Manual Therapy Treatment Joint Mobilizations GH inf, AP Joint R GH jt Direction inf/AP Grade II Body Position Supine Reps/Duration 4 min Taping GH superior stabilization Body Location R shld Y taping Treatment Focus superior stabilization Type of Tape Kinesio Tape Skin Inspection normal color PT-OP-R Modalities Start: 05/29/20 13:11 Freq: Status: Active Protocol: Document 05/31/20 08:15 LRN (Rec: 05/31/20 08:52 LRN [id number]) Ultrasound Therapy Treatment Right Anterior Shoulder Treatment Duration (minutes) 8 Patient Position Supine Coupling Medium Ultrasound Gel Frequency Setting (mHz) 3 Mode Setting Pulsed Duty Cycle 50% Intensity Setting (w/cm2) 1.0 PT-OP-T Assessment and Plan Start: 05/29/20 13:11 Freq: Status: Active Protocol: Document 06/17/20 07:31 SP (Rec: 06/17/20 08:40 SP [id number]) Physical Therapy Assessment Goals Four Impairment sleep Short Term Goal (STG) Pt will implement sleep positioning strategies for reduced pain and improved restfulness of sleep STG Duration 06/26/20 Three Impairment pt unable to participate in yoga and other desired activities due to pain Short Term Goal (STG) Pt will be independent with [facility] for support of therapy services provide in clinic STG Duration 06/26/20 Diabetic Educator Goal (LTG) Pt will be able to tolerate prone and quadruped yoga poses with modifications without increasing pain LTG Duration 07/24/20 Two Impairment pt scores 43% impairment on quickDASH Short Term Goal (STG) Pt will score 35% impairment or lower for improved ability to return to work STG Duration 06/26/20 [facility] Goal (LTG) Pt will score 25% impairment or lower for improved ability to return to work LTG Duration 07/24/20 One Impairment ROM Short Term Goal (STG) Pt will improve pain-free R GH abduction to 150 or greater to demonstrate improved ability to participate in daily activities. STG Duration 06/26/20 [facility] Goal (LTG) Pt will improve pain-free R GH abduction to 160 or greater to demonstrate improved ability to participate in daily activities. LTG Duration 07/24/20 Assessment Summary Assessment Tx focused on scapular alignment & stabilization. Added bird dog over ball, standing R shld strenthening rows, ext, ER with Lv 1 band with report of challenging but painfree. Pt required cuing for set up and proper form to decreased shld elevation and forward rolling recruitment with improvement in demonstration. Pt stated wants to get a ball to assist progress in home activity under therapy guidance. Continue to progress as tolerated. Physical Therapy Plan Frequency and Duration Frequency of Treatment 1-2x/week Duration of Treatment up to 15 visits per current [place] authorization Plan of Care Start Date 05/29/20 Plan of Care End Date 07/24/20 Therapeutic Interventions Therapeutic Interventions Home Exercise Program,Joint Mobilizations,Manual Therapy, Neuromuscular Re-education, Patient/Caregiver Education, Soft Tissue Mobilization, Taping,Therapeutic Activities, Therapeutic Exercises Modalities Cold Pack/Ice Massage,Hot Packs Next Visit Focus/Plan Next Note Type Treatment Note Next Visit Plan Assess reponse to last tx Kinesiotaping R shld, added bird dog over ball, Shld row/ ext/ER, supine ball bridge AROM BUE. Next tx possible warm up pulleys, UBE if tolerance ROM only. Continue per PT POC suggestions: ?joint mobilization for right shoulder posterior and inferior glide; ther ex as tolerated for ROM and strength . Try US to R UT and anterior shoulder for pain.
--- NOTE | 2020-06-19 12:22 | PT.OTN ---
Current Diagnoses Pain in right shoulder (06/19/20) Abnormal posture (06/19/20) Physical Therapy Treatment Note PT-OP-A Visit Information Start: 05/29/20 13:11 Freq: Status: Active Protocol: Document 06/19/20 12:00 AW (Rec: 06/19/20 12:22 AW [id number]) Out-Patient Physical Therapy Visit Information Visit Information Visit Type Treatment Note Visit Start Time 11:22 Visit Stop Time 12:00 Total Visit Minutes 38 Visit Number 04/07 Number of INTEGRATED LOGISTICS OPERATIONS MANAGER Visits 0 PT-OP-B Current Condition Start: 05/29/20 13:11 Freq: Status: Active Protocol: Document 05/29/20 13:14 AW (Rec: 05/29/20 13:21 AW [id number]) Current Condition History of Current Condition Onset Date 1.5 years ago Current Complaints right shoulder pain History of Current Condition Pt reports gradual onset right shoulder pain worsening over the past 1.5 years. She has chronic neck pain but I just live with it. She states she has had a forced period of rest for her shoulder due to COVID stay at home order. 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 She fears she may not have a job to return to which is increasing her stress. Pt reports increased pain with heavy lifting and overhead movement. It feels like my arm is going to fall out of the socket. She takes tramadol during day and methocarbamol at night which help with her pain. Her pain gets as bad as 10/10 and is affecting her sleep. She is unable to sleep on her right side at all. She has had some difficulty with upper body dressing tasks but this has improved somewhat with rest over the last few months She lives alone with her rat terrier. She has been doing gentle yoga at home with modifications for her shoulder . Prior Treatments and Tests -PT for neck 20 years ago -MRI 12/09/19 1. Tendinosis and low to moderate grade articular and bursal surface partial- thickness tear involving distal supraspinatus and infraspinatus extending to musculotendinous junction. 2. Mild to moderate acromioclavicular joint and glenohumeral joint osteoarthritis. 3. Suggestion of focal superior anterior labral tear at 12 to 1:00 position. Suggestion of tendinosis and low-grade partial-thickness tear involving proximal intra- articular portion of long head biceps tendon. Future Testing and Treatments Planned Pt is considering surgery Treatment Goals Patient/Caregiver Goals Pt hopes to improve her upper body strength. Ultimately, she hopes to avoid surgery, but she expresses skepticism about the efficacy of physical therapy. 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 PT-OP-F Manual Assessment Start: 05/29/20 13:11 Freq: Status: Active Protocol: Document 05/29/20 13:14 AW (Rec: 05/30/20 17:32 AW [id number]) Manual Assessments Soft Tissue Assessment Soft Tissue Mobility Assessment Tight and tender to palpation at insertion of infraspinatus/ supraspinatus. Tender and painful pec major and minor Joint Mobility Assessment Joint Mobility Assessment Reduced and painful posterior glides R GH joint PT-OP-H Neuro Start: 05/29/20 13:11 Freq: Status: Active Protocol: Document 05/29/20 13:14 AW (Rec: 05/30/20 17:32 AW [id number]) Sensation Evaluation Gross Sensation Gross Sensation Left UE Impaired,Right UE Impaired Sensation Description Numbness,Tingling,Pins & [place] Comments Summary Comments Pt reports history of bilateral UE paresthesias but that they have improved over the years. Minimal complaints at this time. Deep Tendon Reflex & Clonus Assessment Deep Tendon Reflex Bilateral Tricep Deep Tendon Reflex 1+ Diminished Bilateral Bicep Deep Tendon Reflex 2+ Normal PT-OP-J Posture/Palpation/Skin Start: 05/29/20 13:11 Freq: Status: Active Protocol: Document 05/29/20 13:14 AW (Rec: 05/30/20 17:32 AW [id number]) Posture Evaluation Position Sitting Evaluation View posterior and lateral Head/C-Spine Posture Extended Shoulder Posture (L) Rounded,(R) Rounded,(L) Forward,(R) Forward Scapula Posture (L) Protracted,(R) Protracted, (L) Winged,(R) Winged Arm Posture (L) Internally Rotated,(R) Internally Rotated Comments Posture Comments Winged and protracted scapulae at rest. Rounded shoulders bilaterally. PT-OP-K Range of Motion Start: 05/29/20 13:11 Freq: Status: Active Protocol: Document 05/29/20 13:14 AW (Rec: 05/30/20 17:32 AW [id number]) Cervical Spine Range of Motion Cervical Spine Active Degrees Testing Position Sitting Flexion 40 Extension 40 Rotation Left 35 Rotation Right 40 Lateral Flexion Left 25 Lateral Flexion Right 25 ROM Limitations Soft Tissue Tightness Shoulder Goniometric Range of Motion Shoulder Right Active Flexion 155 Extension 30 Abduction 140 External Rotation at 90 degrees 60 Abduction Internal Rotation Behind Back (text) T10 Left Active Flexion 165 Extension 40 Abduction 165 External Rotation at 90 degrees 80 Abduction Internal Rotation Behind Back (text) T6 Shoulder ROM Limitations Shoulder ROM Limitations Pain Elbow/Forearm Range of Motion Elbow/Forearm ROM Limitations Comments Elbow AROM WNL PT-OP-L Special Tests Start: 05/29/20 13:11 Freq: Status: Active Protocol: Document 05/29/20 13:14 AW (Rec: 05/30/20 17:32 AW [id number]) Special Tests Shoulder Special Tests Bishop Tommy Impingement Test Results R (+) Comments mildly painful with scapular stabilization. Also performed infraspinatus MMT which was positive on the right side for pain and painful arc which was positive on the right side. Drop Arm Rotator Cuff Test Results R (+) Comments able to hold but with shoulder shrugging and pain PT-OP-M Strength Start: 05/29/20 13:11 Freq: Status: Active Protocol: Document 05/29/20 13:14 AW (Rec: 05/30/20 17:32 AW [id number]) Scapula Strength Scapula Manual Muscle Testing Right Comments 4/5 protraction bilaterally Shoulder Strength Shoulder Manual Muscle Testing Right Flexion 4 Good Extension 4+ Good+ Abduction (C5) 4 Good External Rotation 4 Good Internal Rotation 4 Good Left Flexion 5 Normal Extension 5 Normal Abduction (C5) 5 Normal External Rotation 4+ Good+ Internal Rotation 5 Normal Elbow/Forearm Strength Elbow and Forearm Manual Muscle Testing Right Comments Grossly 4+/5 bilaterally PT-OP-Q Treatments Start: 05/29/20 13:11 Freq: Status: Active Protocol: Document 06/19/20 12:00 AW (Rec: 06/19/20 12:22 AW [email or web address]) Therapeutic Exercises Sidelying Exercises scapular retraction/depression Sidelying Exercise Name scapular retraction/depression Side right Resistance manual Reps/Minutes 3 minutes Comments cues to pull back and down against manual resistance Sitting Exercises pulleys Sitting Exercise Name FF, ABD, scaption Side right Reps/Minutes 1.5 minutes each Standing Exercises isometric ER/IR Standing Exercise Name isometric ER/IR Side right Equipment Used wall Reps/Minutes 5 sec hold x 8 Comments better tolerated than reactive isometrics scap retraction with table lean Standing Exercise Name scap retraction with table lean Side bilateral Equipment Used treatment table Reps/Minutes 10 reps x 2 Comments lean on table with ER shoulders to promote thoracic extension reactive isometric walkouts ER/IR Standing Exercise Name reactive isometric walkouts ER /IR Side right Resistance level 1 Equipment Used TB Reps/Minutes 10 reps each direction Comments cues for neutral rotation and to avoid stepping into painful range Manual Therapy Treatment Joint Mobilizations thoracic extension Direction extension Grade II Body Position Sitting Reps/Duration 3 min Comments Pt sitting edge of table with arms wrapped over PT's arms and head resting on forearms. PT provides multi level thoracic extension mob by leaning backward with pt leaning forward. GH inf, AP Joint R GH jt Direction inf/AP Grade II Body Position Supine Reps/Duration 5 min Self-Care/Home Management Treatment Education Patient Education Body Mechanics,Joint Protection Activities Self-Care/Home Management Activities Education on proper GH mechanics and role of thoracic extension in arm elevation. Also provided education on stabilizing role of rotator cuff to address anterior translation of humeral head. PT-OP-R Modalities Start: 05/29/20 13:11 Freq: Status: Active Protocol: Document 05/31/20 08:15 LRN (Rec: 05/31/20 08:52 LRN [id number]) Ultrasound Therapy Treatment Right Anterior Shoulder Treatment Duration (minutes) 8 Patient Position Supine Coupling Medium Ultrasound Gel Frequency Setting (mHz) 3 Mode Setting Pulsed Duty Cycle 50% Intensity Setting (w/cm2) 1.0 PT-OP-T Assessment and Plan Start: 05/29/20 13:11 Freq: Status: Active Protocol: Document 06/19/20 12:00 AW (Rec: 06/19/20 12:22 AW [email or web address]) Physical Therapy Assessment Goals Four Impairment sleep Short Term Goal (STG) Pt will implement sleep positioning strategies for reduced pain and improved restfulness of sleep STG Duration 06/26/20 Three Impairment pt unable to participate in yoga and other desired activities due to pain Short Term Goal (STG) Pt will be independent with [facility] for support of therapy services provide in clinic STG Duration 06/26/20 Skilled Nursing Goal (LTG) Pt will be able to tolerate prone and quadruped yoga poses with modifications without increasing pain LTG Duration 07/24/20 Two Impairment pt scores 43% impairment on quickDASH Short Term Goal (STG) Pt will score 35% impairment or lower for improved ability to return to work STG Duration 06/26/20 Skilled Nursing Goal (LTG) Pt will score 25% impairment or lower for improved ability to return to work LTG Duration 07/24/20 One Impairment ROM Short Term Goal (STG) Pt will improve pain-free R GH abduction to 150 or greater to demonstrate improved ability to participate in daily activities. STG Duration 06/26/20 Sack Filler Goal (LTG) Pt will improve pain-free R GH abduction to 160 or greater to demonstrate improved ability to participate in daily activities. LTG Duration 07/24/20 Assessment Summary Assessment Tx focused on scapular stabilization, education and ther ex for rotator cuff strengthening. Pt is gaining pain free ROM but continues to experience instability anteriorly. She tolerated isometrics well and added to HEP. Pt will benefit from continued focus on scapular stabilization and rotator cuff strengthening before moving on to functional movements. Physical Therapy Plan Frequency and Duration Frequency of Treatment 1-2x/week Duration of Treatment up to 15 visits per current [place] authorization Plan of Care Start Date 05/29/20 Plan of Care End Date 07/24/20 Therapeutic Interventions Therapeutic Interventions Home Exercise Program,Joint Mobilizations,Manual Therapy, Neuromuscular Re-education, Patient/Caregiver Education, Soft Tissue Mobilization, Taping,Therapeutic Activities, Therapeutic Exercises Modalities Cold Pack/Ice Massage,Hot Packs Next Visit Focus/Plan Next Note Type Treatment Note Next Visit Plan Progress scapular stab and RC strength as tolerated. Taping for support.
--- NOTE | 2020-06-24 13:00 | PT.OTN ---
Current Diagnoses Pain in right shoulder (06/24/20) Abnormal posture (06/24/20) Physical Therapy Treatment Note PT-OP-A Visit Information Start: 05/29/20 13:11 Freq: Status: Active Protocol: Document 06/24/20 12:18 SP (Rec: 06/24/20 13:07 SP [id number]) Out-Patient Physical Therapy Visit Information Visit Information Visit Type Treatment Note Visit Start Time 12:18 Visit Stop Time 13:00 Total Visit Minutes 41 Visit Number 05/08 Number of CLOCK ASSEMBLER Visits 1 PT-OP-B Current Condition Start: 05/29/20 13:11 Freq: Status: Active Protocol: Document 05/29/20 13:14 AW (Rec: 05/29/20 13:21 AW [id number]) Current Condition History of Current Condition Onset Date 1.5 years ago Current Complaints right shoulder pain History of Current Condition Pt reports gradual onset right shoulder pain worsening over the past 1.5 years. She has chronic neck pain but I just live with it. She states she has had a forced period of rest for her shoulder due to COVID stay at home order. 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 She fears she may not have a job to return to which is increasing her stress. Pt reports increased pain with heavy lifting and overhead movement. It feels like my arm is going to fall out of the socket. She takes tramadol during day and methocarbamol at night which help with her pain. Her pain gets as bad as 10/10 and is affecting her sleep. She is unable to sleep on her right side at all. She has had some difficulty with upper body dressing tasks but this has improved somewhat with rest over the last few months She lives alone with her rat terrier. She has been doing gentle yoga at home with modifications for her shoulder . Prior Treatments and Tests -PT for neck 20 years ago -MRI 12/09/19 1. Tendinosis and low to moderate grade articular and bursal surface partial- thickness tear involving distal supraspinatus and infraspinatus extending to musculotendinous junction. 2. Mild to moderate acromioclavicular joint and glenohumeral joint osteoarthritis. 3. Suggestion of focal superior anterior labral tear at 12 to 1:00 position. Suggestion of tendinosis and low-grade partial-thickness tear involving proximal intra- articular portion of long head biceps tendon. Future Testing and Treatments Planned Pt is considering surgery Treatment Goals Patient/Caregiver Goals Pt hopes to improve her upper body strength. Ultimately, she hopes to avoid surgery, but she expresses skepticism about the efficacy of physical therapy. 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 States does her exercises 1-2 times a day but if active in the day may not do in am and do more stretching then ex in evening. Is finally adjusting to day sleep schedule from working night prior to injury. PT-OP-F Manual Assessment Start: 05/29/20 13:11 Freq: Status: Active Protocol: Document 05/29/20 13:14 AW (Rec: 05/30/20 17:32 AW [id number]) Manual Assessments Soft Tissue Assessment Soft Tissue Mobility Assessment Tight and tender to palpation at insertion of infraspinatus/ supraspinatus. Tender and painful pec major and minor Joint Mobility Assessment Joint Mobility Assessment Reduced and painful posterior glides R GH joint PT-OP-H Neuro Start: 05/29/20 13:11 Freq: Status: Active Protocol: Document 05/29/20 13:14 AW (Rec: 05/30/20 17:32 AW [id number]) Sensation Evaluation Gross Sensation Gross Sensation Left UE Impaired,Right UE Impaired Sensation Description Numbness,Tingling,Pins & [place] Comments Summary Comments Pt reports history of bilateral UE paresthesias but that they have improved over the years. Minimal complaints at this time. Deep Tendon Reflex & Clonus Assessment Deep Tendon Reflex Bilateral Tricep Deep Tendon Reflex 1+ Diminished Bilateral Bicep Deep Tendon Reflex 2+ Normal PT-OP-J Posture/Palpation/Skin Start: 05/29/20 13:11 Freq: Status: Active Protocol: Document 05/29/20 13:14 AW (Rec: 05/30/20 17:32 AW [id number]) Posture Evaluation Position Sitting Evaluation View posterior and lateral Head/C-Spine Posture Extended Shoulder Posture (L) Rounded,(R) Rounded,(L) Forward,(R) Forward Scapula Posture (L) Protracted,(R) Protracted, (L) Winged,(R) Winged Arm Posture (L) Internally Rotated,(R) Internally Rotated Comments Posture Comments Winged and protracted scapulae at rest. Rounded shoulders bilaterally. PT-OP-K Range of Motion Start: 05/29/20 13:11 Freq: Status: Active Protocol: Document 05/29/20 13:14 AW (Rec: 05/30/20 17:32 AW [id number]) Cervical Spine Range of Motion Cervical Spine Active Degrees Testing Position Sitting Flexion 40 Extension 40 Rotation Left 35 Rotation Right 40 Lateral Flexion Left 25 Lateral Flexion Right 25 ROM Limitations Soft Tissue Tightness Shoulder Goniometric Range of Motion Shoulder Right Active Flexion 155 Extension 30 Abduction 140 External Rotation at 90 degrees 60 Abduction Internal Rotation Behind Back (text) T10 Left Active Flexion 165 Extension 40 Abduction 165 External Rotation at 90 degrees 80 Abduction Internal Rotation Behind Back (text) T6 Shoulder ROM Limitations Shoulder ROM Limitations Pain Elbow/Forearm Range of Motion Elbow/Forearm ROM Limitations Comments Elbow AROM WNL PT-OP-L Special Tests Start: 05/29/20 13:11 Freq: Status: Active Protocol: Document 05/29/20 13:14 AW (Rec: 05/30/20 17:32 AW [id number]) Special Tests Shoulder Special Tests Bishop Tommy Impingement Test Results R (+) Comments mildly painful with scapular stabilization. Also performed infraspinatus MMT which was positive on the right side for pain and painful arc which was positive on the right side. Drop Arm Rotator Cuff Test Results R (+) Comments able to hold but with shoulder shrugging and pain PT-OP-M Strength Start: 05/29/20 13:11 Freq: Status: Active Protocol: Document 05/29/20 13:14 AW (Rec: 05/30/20 17:32 AW [id number]) Scapula Strength Scapula Manual Muscle Testing Right Comments 4/5 protraction bilaterally Shoulder Strength Shoulder Manual Muscle Testing Right Flexion 4 Good Extension 4+ Good+ Abduction (C5) 4 Good External Rotation 4 Good Internal Rotation 4 Good Left Flexion 5 Normal Extension 5 Normal Abduction (C5) 5 Normal External Rotation 4+ Good+ Internal Rotation 5 Normal Elbow/Forearm Strength Elbow and Forearm Manual Muscle Testing Right Comments Grossly 4+/5 bilaterally PT-OP-Q Treatments Start: 05/29/20 13:11 Freq: Status: Active Protocol: Document 06/24/20 12:18 SP (Rec: 06/24/20 13:07 SP [id number]) Therapeutic Exercises Standing Exercises wall slide Standing Exercise Name FF Reps/Minutes x5 Comments cued scap retract/depression and self post glide TS ext elbow wall walk Side bilateral Resistance ROM Equipment Used wall Reps/Minutes 2x5 Comments cued c/s neutral isometric ER/IR Standing Exercise Name isometric ER/IR Side right Equipment Used wall Reps/Minutes 5 sec hold x 8 Comments better tolerated than reactive isometrics reactive isometric walkouts ER/IR Standing Exercise Name reactive isometric walkouts ER /IR Side right Resistance level 1 Equipment Used TB Reps/Minutes 10 reps each direction Comments cues for neutral rotation and to avoid stepping into painful range Rows, extension Resistance Lv 1 Reps/Minutes 2x5 Comments good alignment HEP Review Manual Therapy Treatment Joint Mobilizations thoracic extension Direction extension Grade II Body Position Sitting Reps/Duration 3 min Comments Pt sitting edge of table with arms wrapped over PT's arms and head resting on forearms. PT provides multi level thoracic extension mob by leaning backward with pt leaning forward. GH inf, AP Joint R GH jt Direction inf/AP Grade II Body Position Supine Reps/Duration 5 min Taping GH superior stabilization Body Location R shld Y taping Treatment Focus superior stabilization Type of Tape Kinesio Tape Skin Inspection normal color PT-OP-R Modalities Start: 05/29/20 13:11 Freq: Status: Active Protocol: Document 05/31/20 08:15 LRN (Rec: 05/31/20 08:52 LRN [id number]) Ultrasound Therapy Treatment Right Anterior Shoulder Treatment Duration (minutes) 8 Patient Position Supine Coupling Medium Ultrasound Gel Frequency Setting (mHz) 3 Mode Setting Pulsed Duty Cycle 50% Intensity Setting (w/cm2) 1.0 PT-OP-T Assessment and Plan Start: 05/29/20 13:11 Freq: Status: Active Protocol: Document 06/24/20 12:18 SP (Rec: 06/24/20 13:07 SP [id number]) Physical Therapy Assessment Goals Four Impairment sleep Short Term Goal (STG) Pt will implement sleep positioning strategies for reduced pain and improved restfulness of sleep STG Duration 06/26/20 Three Impairment pt unable to participate in yoga and other desired activities due to pain Short Term Goal (STG) Pt will be independent with [facility] for support of therapy services provide in clinic STG Duration 06/26/20 Nursing Home Goal (LTG) Pt will be able to tolerate prone and quadruped yoga poses with modifications without increasing pain LTG Duration 07/24/20 Two Impairment pt scores 43% impairment on quickDASH Short Term Goal (STG) Pt will score 35% impairment or lower for improved ability to return to work STG Duration 06/26/20 Wallpaper Hanger Helper Goal (LTG) Pt will score 25% impairment or lower for improved ability to return to work LTG Duration 07/24/20 One Impairment ROM Short Term Goal (STG) Pt will improve pain-free R GH abduction to 150 or greater to demonstrate improved ability to participate in daily activities. STG Duration 06/26/20 Nursing Home Goal (LTG) Pt will improve pain-free R GH abduction to 160 or greater to demonstrate improved ability to participate in daily activities. LTG Duration 07/24/20 Assessment Summary Assessment Reapplied K taping for GH stabilization with good reponse helped alot. Tx HEP review shld IR/ER isometric and added standing TS ext ( elbow wall walking) with self pic with [place] for home performance. Pt had good response to ex today. side stepping band is still little irritating and isometic more tolerance so will hold off on use of band. Improvement in self corections scap stabilization during exercisds . Physical Therapy Plan Frequency and Duration Frequency of Treatment 1-2x/week Duration of Treatment up to 15 visits per current [place] authorization Plan of Care Start Date 05/29/20 Plan of Care End Date 07/24/20 Therapeutic Interventions Therapeutic Interventions Home Exercise Program,Joint Mobilizations,Manual Therapy, Neuromuscular Re-education, Patient/Caregiver Education, Soft Tissue Mobilization, Taping,Therapeutic Activities, Therapeutic Exercises Modalities Cold Pack/Ice Massage,Hot Packs Next Visit Focus/Plan Next Note Type Treatment Note Next Visit Plan Progress scapular stab and RC strength as tolerated. Taping for support.
--- NOTE | 2020-06-26 17:10 | PT.OTN ---
Current Diagnoses Pain in right shoulder (06/26/20) Abnormal posture (06/26/20) Physical Therapy Treatment Note PT-OP-A Visit Information Start: 05/29/20 13:11 Freq: Status: Active Protocol: Document 06/26/20 16:01 AW (Rec: 06/26/20 17:10 AW [id number]) Out-Patient Physical Therapy Visit Information Visit Information Visit Type Treatment Note Visit Start Time 16:01 Visit Stop Time 16:44 Total Visit Minutes 43 Visit Number 06/07 Number of SERVICE ASSOCIATE Visits 0 PT-OP-B Current Condition Start: 05/29/20 13:11 Freq: Status: Active Protocol: Document 05/29/20 13:14 AW (Rec: 05/29/20 13:21 AW [id number]) Current Condition History of Current Condition Onset Date 1.5 years ago Current Complaints right shoulder pain History of Current Condition Pt reports gradual onset right shoulder pain worsening over the past 1.5 years. She has chronic neck pain but I just live with it. She states she has had a forced period of rest for her shoulder due to COVID stay at home order. 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 She fears she may not have a job to return to which is increasing her stress. Pt reports increased pain with heavy lifting and overhead movement. It feels like my arm is going to fall out of the socket. She takes tramadol during day and methocarbamol at night which help with her pain. Her pain gets as bad as 10/10 and is affecting her sleep. She is unable to sleep on her right side at all. She has had some difficulty with upper body dressing tasks but this has improved somewhat with rest over the last few months She lives alone with her rat terrier. She has been doing gentle yoga at home with modifications for her shoulder . Prior Treatments and Tests -PT for neck 20 years ago -MRI 12/09/19 1. Tendinosis and low to moderate grade articular and bursal surface partial- thickness tear involving distal supraspinatus and infraspinatus extending to musculotendinous junction. 2. Mild to moderate acromioclavicular joint and glenohumeral joint osteoarthritis. 3. Suggestion of focal superior anterior labral tear at 12 to 1:00 position. Suggestion of tendinosis and low-grade partial-thickness tear involving proximal intra- articular portion of long head biceps tendon. Future Testing and Treatments Planned Pt is considering surgery Treatment Goals Patient/Caregiver Goals Pt hopes to improve her upper body strength. Ultimately, she hopes to avoid surgery, but she expresses skepticism about the efficacy of physical therapy. 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 PT-OP-F Manual Assessment Start: 05/29/20 13:11 Freq: Status: Active Protocol: Document 05/29/20 13:14 AW (Rec: 05/30/20 17:32 AW [id number]) Manual Assessments Soft Tissue Assessment Soft Tissue Mobility Assessment Tight and tender to palpation at insertion of infraspinatus/ supraspinatus. Tender and painful pec major and minor Joint Mobility Assessment Joint Mobility Assessment Reduced and painful posterior glides R GH joint PT-OP-H Neuro Start: 05/29/20 13:11 Freq: Status: Active Protocol: Document 05/29/20 13:14 AW (Rec: 05/30/20 17:32 AW [id number]) Sensation Evaluation Gross Sensation Gross Sensation Left UE Impaired,Right UE Impaired Sensation Description Numbness,Tingling,Pins & [place] Comments Summary Comments Pt reports history of bilateral UE paresthesias but that they have improved over the years. Minimal complaints at this time. Deep Tendon Reflex & Clonus Assessment Deep Tendon Reflex Bilateral Tricep Deep Tendon Reflex 1+ Diminished Bilateral Bicep Deep Tendon Reflex 2+ Normal PT-OP-J Posture/Palpation/Skin Start: 05/29/20 13:11 Freq: Status: Active Protocol: Document 05/29/20 13:14 AW (Rec: 05/30/20 17:32 AW [id number]) Posture Evaluation Position Sitting Evaluation View posterior and lateral Head/C-Spine Posture Extended Shoulder Posture (L) Rounded,(R) Rounded,(L) Forward,(R) Forward Scapula Posture (L) Protracted,(R) Protracted, (L) Winged,(R) Winged Arm Posture (L) Internally Rotated,(R) Internally Rotated Comments Posture Comments Winged and protracted scapulae at rest. Rounded shoulders bilaterally. PT-OP-K Range of Motion Start: 05/29/20 13:11 Freq: Status: Active Protocol: Document 05/29/20 13:14 AW (Rec: 05/30/20 17:32 AW [id number]) Cervical Spine Range of Motion Cervical Spine Active Degrees Testing Position Sitting Flexion 40 Extension 40 Rotation Left 35 Rotation Right 40 Lateral Flexion Left 25 Lateral Flexion Right 25 ROM Limitations Soft Tissue Tightness Shoulder Goniometric Range of Motion Shoulder Right Active Flexion 155 Extension 30 Abduction 140 External Rotation at 90 degrees 60 Abduction Internal Rotation Behind Back (text) T10 Left Active Flexion 165 Extension 40 Abduction 165 External Rotation at 90 degrees 80 Abduction Internal Rotation Behind Back (text) T6 Shoulder ROM Limitations Shoulder ROM Limitations Pain Elbow/Forearm Range of Motion Elbow/Forearm ROM Limitations Comments Elbow AROM WNL PT-OP-L Special Tests Start: 05/29/20 13:11 Freq: Status: Active Protocol: Document 05/29/20 13:14 AW (Rec: 05/30/20 17:32 AW [id number]) Special Tests Shoulder Special Tests Bishop Tommy Impingement Test Results R (+) Comments mildly painful with scapular stabilization. Also performed infraspinatus MMT which was positive on the right side for pain and painful arc which was positive on the right side. Drop Arm Rotator Cuff Test Results R (+) Comments able to hold but with shoulder shrugging and pain PT-OP-M Strength Start: 05/29/20 13:11 Freq: Status: Active Protocol: Document 05/29/20 13:14 AW (Rec: 05/30/20 17:32 AW [id number]) Scapula Strength Scapula Manual Muscle Testing Right Comments 4/5 protraction bilaterally Shoulder Strength Shoulder Manual Muscle Testing Right Flexion 4 Good Extension 4+ Good+ Abduction (C5) 4 Good External Rotation 4 Good Internal Rotation 4 Good Left Flexion 5 Normal Extension 5 Normal Abduction (C5) 5 Normal External Rotation 4+ Good+ Internal Rotation 5 Normal Elbow/Forearm Strength Elbow and Forearm Manual Muscle Testing Right Comments Grossly 4+/5 bilaterally PT-OP-Q Treatments Start: 05/29/20 13:11 Freq: Status: Active Protocol: Document 06/26/20 16:01 AW (Rec: 06/26/20 17:10 AW [id number]) Therapeutic Exercises Supine Exercises thoracic extension mob Supine Exercise Name thoracic extension mob Equipment Used half foam roll Reps/Minutes 3 minutes Sidelying Exercises open book/thoracic rotation Sidelying Exercise Name open book/thoracic rotation Side bilateral Reps/Minutes 4 minutes Comments cues for head turn with extension scapular retraction/depression Sidelying Exercise Name scapular retraction/depression Side right Resistance manual Reps/Minutes 3 minutes Comments cues to pull back and down against manual resistance Sitting Exercises FF on table Sitting Exercise Name FF on table Side right Reps/Minutes table at shoulder height Standing Exercises leblanc walk Standing Exercise Name leblanc walk Side bilateral Resistance 3# Equipment Used db Reps/Minutes 300 feet Comments to promote RC activation wall slide Standing Exercise Name FF and abduction Side right Reps/Minutes x8 Comments cued scap retract/depression and self post glide Manual Therapy Treatment Soft Tissue Mobilization upper traps, lev scap, cervical paraspinals Body Location upper traps, lev scap, cervical paraspinals Mobilization Type Strumming,Sustained Pressure, Trigger Point Release Intensity/Depth Moderate Body Position Hooklying Comments Pt demonstrated improved active and passive shoulder rotation after STM Joint Mobilizations thoracic extension Direction extension Grade II Body Position Sitting Reps/Duration 3 min Comments Pt sitting edge of table with arms wrapped over PT's arms and head resting on forearms. PT provides multi level thoracic extension mob by leaning backward with pt leaning forward. Self-Care/Home Management Treatment Education Patient Education Body Mechanics,Joint Protection PT-OP-R Modalities Start: 05/29/20 13:11 Freq: Status: Active Protocol: Document 05/31/20 08:15 LRN (Rec: 05/31/20 08:52 LRN [id number]) Ultrasound Therapy Treatment Right Anterior Shoulder Treatment Duration (minutes) 8 Patient Position Supine Coupling Medium Ultrasound Gel Frequency Setting (mHz) 3 Mode Setting Pulsed Duty Cycle 50% Intensity Setting (w/cm2) 1.0 PT-OP-T Assessment and Plan Start: 05/29/20 13:11 Freq: Status: Active Protocol: Document 06/26/20 16:01 AW (Rec: 06/26/20 17:10 AW [id number]) Physical Therapy Assessment Goals Four Impairment sleep Short Term Goal (STG) Pt will implement sleep positioning strategies for reduced pain and improved restfulness of sleep STG Duration 06/26/20 Three Impairment pt unable to participate in yoga and other desired activities due to pain Short Term Goal (STG) Pt will be independent with [facility] for support of therapy services provide in clinic STG Duration 06/26/20 Residential Goal (LTG) Pt will be able to tolerate prone and quadruped yoga poses with modifications without increasing pain LTG Duration 07/24/20 Two Impairment pt scores 43% impairment on quickDASH Short Term Goal (STG) Pt will score 35% impairment or lower for improved ability to return to work STG Duration 06/26/20 Residential Goal (LTG) Pt will score 25% impairment or lower for improved ability to return to work LTG Duration 07/24/20 One Impairment ROM Short Term Goal (STG) Pt will improve pain-free R GH abduction to 150 or greater to demonstrate improved ability to participate in daily activities. STG Duration 06/26/20 Ultimate Hoops Trainer Goal (LTG) Pt will improve pain-free R GH abduction to 160 or greater to demonstrate improved ability to participate in daily activities. LTG Duration 07/24/20 Assessment Summary Assessment Tx focused on STM for increased pain -free ROM and thoracic extension for improved arm elevation. Pt states she is noticing her posture more frequently and self-correcting. Physical Therapy Plan Frequency and Duration Frequency of Treatment 1-2x/week Duration of Treatment up to 15 visits per current [place] authorization Plan of Care Start Date 05/29/20 Plan of Care End Date 07/24/20 Therapeutic Interventions Therapeutic Interventions Home Exercise Program,Joint Mobilizations,Manual Therapy, Neuromuscular Re-education, Patient/Caregiver Education, Soft Tissue Mobilization, Taping,Therapeutic Activities, Therapeutic Exercises Modalities Cold Pack/Ice Massage,Hot Packs Next Visit Focus/Plan Next Note Type Treatment Note Next Visit Plan Progress scapular stab and RC strength as tolerated. Taping for support.
--- NOTE | 2020-07-01 11:20 | PT.OTN ---
Current Diagnoses Pain in right shoulder (07/01/20) Abnormal posture (07/01/20) Physical Therapy Treatment Note PT-OP-A Visit Information Start: 05/29/20 13:11 Freq: Status: Active Protocol: Document 07/01/20 10:36 SP (Rec: 07/01/20 11:34 SP [id number]) Out-Patient Physical Therapy Visit Information Visit Information Visit Type Treatment Note Visit Note Pt was few minutes late to day . Visit Start Time 10:36 Visit Stop Time 11:20 Total Visit Minutes 44 Visit Number 07/08 Number of ALBERENE STONE SETTER Visits 1 PT-OP-B Current Condition Start: 05/29/20 13:11 Freq: Status: Active Protocol: Document 05/29/20 13:14 AW (Rec: 05/29/20 13:21 AW [id number]) Current Condition History of Current Condition Onset Date 1.5 years ago Current Complaints right shoulder pain History of Current Condition Pt reports gradual onset right shoulder pain worsening over the past 1.5 years. She has chronic neck pain but I just live with it. She states she has had a forced period of rest for her shoulder due to COVID stay at home order. 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 She fears she may not have a job to return to which is increasing her stress. Pt reports increased pain with heavy lifting and overhead movement. It feels like my arm is going to fall out of the socket. She takes tramadol during day and methocarbamol at night which help with her pain. Her pain gets as bad as 10/10 and is affecting her sleep. She is unable to sleep on her right side at all. She has had some difficulty with upper body dressing tasks but this has improved somewhat with rest over the last few months She lives alone with her rat terrier. She has been doing gentle yoga at home with modifications for her shoulder . Prior Treatments and Tests -PT for neck 20 years ago -MRI 12/09/19 1. Tendinosis and low to moderate grade articular and bursal surface partial- thickness tear involving distal supraspinatus and infraspinatus extending to musculotendinous junction. 2. Mild to moderate acromioclavicular joint and glenohumeral joint osteoarthritis. 3. Suggestion of focal superior anterior labral tear at 12 to 1:00 position. Suggestion of tendinosis and low-grade partial-thickness tear involving proximal intra- articular portion of long head biceps tendon. Future Testing and Treatments Planned Pt is considering surgery Treatment Goals Patient/Caregiver Goals Pt hopes to improve her upper body strength. Ultimately, she hopes to avoid surgery, but she expresses skepticism about the efficacy of physical therapy. 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 Pain is controlled with Tramadol during the day and another medication (like a muscle relaxer) that the helps decrease pain fso can sleep through the night. Still feels the taping is helpful for stabilizing her shld while awake. PT-OP-F Manual Assessment Start: 05/29/20 13:11 Freq: Status: Active Protocol: Document 05/29/20 13:14 AW (Rec: 05/30/20 17:32 AW [id number]) Manual Assessments Soft Tissue Assessment Soft Tissue Mobility Assessment Tight and tender to palpation at insertion of infraspinatus/ supraspinatus. Tender and painful pec major and minor Joint Mobility Assessment Joint Mobility Assessment Reduced and painful posterior glides R GH joint PT-OP-H Neuro Start: 05/29/20 13:11 Freq: Status: Active Protocol: Document 05/29/20 13:14 AW (Rec: 05/30/20 17:32 AW [id number]) Sensation Evaluation Gross Sensation Gross Sensation Left UE Impaired,Right UE Impaired Sensation Description Numbness,Tingling,Pins & [place] Comments Summary Comments Pt reports history of bilateral UE paresthesias but that they have improved over the years. Minimal complaints at this time. Deep Tendon Reflex & Clonus Assessment Deep Tendon Reflex Bilateral Tricep Deep Tendon Reflex 1+ Diminished Bilateral Bicep Deep Tendon Reflex 2+ Normal PT-OP-J Posture/Palpation/Skin Start: 05/29/20 13:11 Freq: Status: Active Protocol: Document 05/29/20 13:14 AW (Rec: 05/30/20 17:32 AW [id number]) Posture Evaluation Position Sitting Evaluation View posterior and lateral Head/C-Spine Posture Extended Shoulder Posture (L) Rounded,(R) Rounded,(L) Forward,(R) Forward Scapula Posture (L) Protracted,(R) Protracted, (L) Winged,(R) Winged Arm Posture (L) Internally Rotated,(R) Internally Rotated Comments Posture Comments Winged and protracted scapulae at rest. Rounded shoulders bilaterally. PT-OP-K Range of Motion Start: 05/29/20 13:11 Freq: Status: Active Protocol: Document 05/29/20 13:14 AW (Rec: 05/30/20 17:32 AW [id number]) Cervical Spine Range of Motion Cervical Spine Active Degrees Testing Position Sitting Flexion 40 Extension 40 Rotation Left 35 Rotation Right 40 Lateral Flexion Left 25 Lateral Flexion Right 25 ROM Limitations Soft Tissue Tightness Shoulder Goniometric Range of Motion Shoulder Right Active Flexion 155 Extension 30 Abduction 140 External Rotation at 90 degrees 60 Abduction Internal Rotation Behind Back (text) T10 Left Active Flexion 165 Extension 40 Abduction 165 External Rotation at 90 degrees 80 Abduction Internal Rotation Behind Back (text) T6 Shoulder ROM Limitations Shoulder ROM Limitations Pain Elbow/Forearm Range of Motion Elbow/Forearm ROM Limitations Comments Elbow AROM WNL PT-OP-L Special Tests Start: 05/29/20 13:11 Freq: Status: Active Protocol: Document 05/29/20 13:14 AW (Rec: 05/30/20 17:32 AW [id number]) Special Tests Shoulder Special Tests Bishop Tommy Impingement Test Results R (+) Comments mildly painful with scapular stabilization. Also performed infraspinatus MMT which was positive on the right side for pain and painful arc which was positive on the right side. Drop Arm Rotator Cuff Test Results R (+) Comments able to hold but with shoulder shrugging and pain PT-OP-M Strength Start: 05/29/20 13:11 Freq: Status: Active Protocol: Document 05/29/20 13:14 AW (Rec: 05/30/20 17:32 AW [id number]) Scapula Strength Scapula Manual Muscle Testing Right Comments 4/5 protraction bilaterally Shoulder Strength Shoulder Manual Muscle Testing Right Flexion 4 Good Extension 4+ Good+ Abduction (C5) 4 Good External Rotation 4 Good Internal Rotation 4 Good Left Flexion 5 Normal Extension 5 Normal Abduction (C5) 5 Normal External Rotation 4+ Good+ Internal Rotation 5 Normal Elbow/Forearm Strength Elbow and Forearm Manual Muscle Testing Right Comments Grossly 4+/5 bilaterally PT-OP-Q Treatments Start: 05/29/20 13:11 Freq: Status: Active Protocol: Document 07/01/20 10:36 SP (Rec: 07/01/20 11:34 SP [id number]) Cardio Equipment Upper Body Ergometer (UBE) Duration (Minutes) 6 Seat Position 9 Height 3 Other 60>80 RPMs, 3 min f/b, good tiring burn, good self posture corrections Therapeutic Exercises Standing Exercises scaption in corner Reps/Minutes 2x5 3 sec hold Comments cuing x1 for scap stabilization eccentric then self corrections rest reps forward punch w/ band Equipment Used L3 band Comments occasional scap stabilization during eccentric direction Rows, extension Standing Exercise Name rows, extension Resistance L3 band Reps/Minutes 2x10 Comments occasional scap stabilization during eccentric direction Manual Therapy Treatment Taping GH superior stabilization Body Location R shld Y taping Treatment Focus GH Jt stabilization Type of Tape Kinesio Tape Skin Inspection normal skin texture/color PT-OP-R Modalities Start: 05/29/20 13:11 Freq: Status: Active Protocol: Document 05/31/20 08:15 LRN (Rec: 05/31/20 08:52 LRN [id number]) Ultrasound Therapy Treatment Right Anterior Shoulder Treatment Duration (minutes) 8 Patient Position Supine Coupling Medium Ultrasound Gel Frequency Setting (mHz) 3 Mode Setting Pulsed Duty Cycle 50% Intensity Setting (w/cm2) 1.0 PT-OP-T Assessment and Plan Start: 05/29/20 13:11 Freq: Status: Active Protocol: Document 07/01/20 10:36 SP (Rec: 07/01/20 11:34 SP [id number]) Physical Therapy Assessment Goals Four Impairment sleep Short Term Goal (STG) Pt will implement sleep positioning strategies for reduced pain and improved restfulness of sleep STG Duration 06/26/20 Three Impairment pt unable to participate in yoga and other desired activities due to pain Short Term Goal (STG) Pt will be independent with [facility] for support of therapy services provide in clinic STG Duration 06/26/20 Intellectual Property Lawyer Goal (LTG) Pt will be able to tolerate prone and quadruped yoga poses with modifications without increasing pain LTG Duration 07/24/20 Two Impairment pt scores 43% impairment on quickDASH Short Term Goal (STG) Pt will score 35% impairment or lower for improved ability to return to work STG Duration 06/26/20 Intellectual Property Lawyer Goal (LTG) Pt will score 25% impairment or lower for improved ability to return to work LTG Duration 07/24/20 One Impairment ROM Short Term Goal (STG) Pt will improve pain-free R GH abduction to 150 or greater to demonstrate improved ability to participate in daily activities. STG Duration 06/26/20 [facility] Goal (LTG) Pt will improve pain-free R GH abduction to 160 or greater to demonstrate improved ability to participate in daily activities. LTG Duration 07/24/20 Assessment Summary Assessment Tx focused on pain- free strengthening in standing today. Tolerated UBE warm up 60>80 RPM, f/b. Pt progressing in wallslide AROM, added scaption in corner with pec stretch at end feel and resisted forward punch with improvement in self corrections of depression/ retraction during eccentric movement after couple of cues. Pt responds well and requested reapplying K tape to R GH jt for added support while progressing in strength. Physical Therapy Plan Frequency and Duration Frequency of Treatment 1-2x/week Duration of Treatment up to [address] authorization Plan of Care Start Date 05/29/20 Plan of Care End Date 07/24/20 Therapeutic Interventions Therapeutic Interventions Home Exercise Program,Joint Mobilizations,Manual Therapy, Neuromuscular Re-education, Patient/Caregiver Education, Soft Tissue Mobilization, Taping,Therapeutic Activities, Therapeutic Exercises Modalities Cold Pack/Ice Massage,Hot Packs Next Visit Focus/Plan Next Note Type Treatment Note Next Visit Plan Assess response to added scaption in corner and serratus punch last tx. Continue to work with leblanc carries and possible add WB activities. Continue per PT POC: Progress scapular stab and RC strength as tolerated. Taping for support.
--- NOTE | 2020-07-03 17:00 | PT.OTN ---
Current Diagnoses Pain in right shoulder (07/03/20) Abnormal posture (07/03/20) Physical Therapy Treatment Note PT-OP-A Visit Information Start: 05/29/20 13:11 Freq: Status: Active Protocol: Document 07/03/20 16:03 AW (Rec: 07/03/20 17:00 AW [id number]) Out-Patient Physical Therapy Visit Information Visit Information Visit Type Treatment Note Visit Start Time 16:05 Visit Stop Time 16:45 Total Visit Minutes 40 Visit Number 08/08 Number of WRINGER OPERATOR Visits 0 PT-OP-B Current Condition Start: 05/29/20 13:11 Freq: Status: Active Protocol: Document 05/29/20 13:14 AW (Rec: 05/29/20 13:21 AW [id number]) Current Condition History of Current Condition Onset Date 1.5 years ago Current Complaints right shoulder pain History of Current Condition Pt reports gradual onset right shoulder pain worsening over the past 1.5 years. She has chronic neck pain but I just live with it. She states she has had a forced period of rest for her shoulder due to COVID stay at home order. 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 She fears she may not have a job to return to which is increasing her stress. Pt reports increased pain with heavy lifting and overhead movement. It feels like my arm is going to fall out of the socket. She takes tramadol during day and methocarbamol at night which help with her pain. Her pain gets as bad as 10/10 and is affecting her sleep. She is unable to sleep on her right side at all. She has had some difficulty with upper body dressing tasks but this has improved somewhat with rest over the last few months She lives alone with her rat terrier. She has been doing gentle yoga at home with modifications for her shoulder . Prior Treatments and Tests -PT for neck 20 years ago -MRI 12/09/19 1. Tendinosis and low to moderate grade articular and bursal surface partial- thickness tear involving distal supraspinatus and infraspinatus extending to musculotendinous junction. 2. Mild to moderate acromioclavicular joint and glenohumeral joint osteoarthritis. 3. Suggestion of focal superior anterior labral tear at 12 to 1:00 position. Suggestion of tendinosis and low-grade partial-thickness tear involving proximal intra- articular portion of long head biceps tendon. Future Testing and Treatments Planned Pt is considering surgery Treatment Goals Patient/Caregiver Goals Pt hopes to improve her upper body strength. Ultimately, she hopes to avoid surgery, but she expresses skepticism about the efficacy of physical therapy. 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 Exercises at home are going well. I see my doctor on Wednesday and I'm trying to get a referral to ortho. PT-OP-F Manual Assessment Start: 05/29/20 13:11 Freq: Status: Active Protocol: Document 05/29/20 13:14 AW (Rec: 05/30/20 17:32 AW [id number]) Manual Assessments Soft Tissue Assessment Soft Tissue Mobility Assessment Tight and tender to palpation at insertion of infraspinatus/ supraspinatus. Tender and painful pec major and minor Joint Mobility Assessment Joint Mobility Assessment Reduced and painful posterior glides R GH joint PT-OP-H Neuro Start: 05/29/20 13:11 Freq: Status: Active Protocol: Document 05/29/20 13:14 AW (Rec: 05/30/20 17:32 AW [id number]) Sensation Evaluation Gross Sensation Gross Sensation Left UE Impaired,Right UE Impaired Sensation Description Numbness,Tingling,Pins & [place] Comments Summary Comments Pt reports history of bilateral UE paresthesias but that they have improved over the years. Minimal complaints at this time. Deep Tendon Reflex & Clonus Assessment Deep Tendon Reflex Bilateral Tricep Deep Tendon Reflex 1+ Diminished Bilateral Bicep Deep Tendon Reflex 2+ Normal PT-OP-J Posture/Palpation/Skin Start: 05/29/20 13:11 Freq: Status: Active Protocol: Document 05/29/20 13:14 AW (Rec: 05/30/20 17:32 AW [id number]) Posture Evaluation Position Sitting Evaluation View posterior and lateral Head/C-Spine Posture Extended Shoulder Posture (L) Rounded,(R) Rounded,(L) Forward,(R) Forward Scapula Posture (L) Protracted,(R) Protracted, (L) Winged,(R) Winged Arm Posture (L) Internally Rotated,(R) Internally Rotated Comments Posture Comments Winged and protracted scapulae at rest. Rounded shoulders bilaterally. PT-OP-K Range of Motion Start: 05/29/20 13:11 Freq: Status: Active Protocol: Document 05/29/20 13:14 AW (Rec: 05/30/20 17:32 AW [id number]) Cervical Spine Range of Motion Cervical Spine Active Degrees Testing Position Sitting Flexion 40 Extension 40 Rotation Left 35 Rotation Right 40 Lateral Flexion Left 25 Lateral Flexion Right 25 ROM Limitations Soft Tissue Tightness Shoulder Goniometric Range of Motion Shoulder Right Active Flexion 155 Extension 30 Abduction 140 External Rotation at 90 degrees 60 Abduction Internal Rotation Behind Back (text) T10 Left Active Flexion 165 Extension 40 Abduction 165 External Rotation at 90 degrees 80 Abduction Internal Rotation Behind Back (text) T6 Shoulder ROM Limitations Shoulder ROM Limitations Pain Elbow/Forearm Range of Motion Elbow/Forearm ROM Limitations Comments Elbow AROM WNL PT-OP-L Special Tests Start: 05/29/20 13:11 Freq: Status: Active Protocol: Document 05/29/20 13:14 AW (Rec: 05/30/20 17:32 AW [id number]) Special Tests Shoulder Special Tests Bishop Tommy Impingement Test Results R (+) Comments mildly painful with scapular stabilization. Also performed infraspinatus MMT which was positive on the right side for pain and painful arc which was positive on the right side. Drop Arm Rotator Cuff Test Results R (+) Comments able to hold but with shoulder shrugging and pain PT-OP-M Strength Start: 05/29/20 13:11 Freq: Status: Active Protocol: Document 05/29/20 13:14 AW (Rec: 05/30/20 17:32 AW [id number]) Scapula Strength Scapula Manual Muscle Testing Right Comments 4/5 protraction bilaterally Shoulder Strength Shoulder Manual Muscle Testing Right Flexion 4 Good Extension 4+ Good+ Abduction (C5) 4 Good External Rotation 4 Good Internal Rotation 4 Good Left Flexion 5 Normal Extension 5 Normal Abduction (C5) 5 Normal External Rotation 4+ Good+ Internal Rotation 5 Normal Elbow/Forearm Strength Elbow and Forearm Manual Muscle Testing Right Comments Grossly 4+/5 bilaterally PT-OP-Q Treatments Start: 05/29/20 13:11 Freq: Status: Active Protocol: Document 07/03/20 16:03 AW (Rec: 07/03/20 17:00 AW [id number]) Cardio Equipment Upper Body Ergometer (UBE) Duration (Minutes) 6 Seat Position 9 Height 3 Other 60>80 RPMs, 3 min f/b, feels good and tiring Gym Equipment Therapeutic Ball prone walk out Exercise Details prone walk out Ball Size/Color 45 cm/blue Body Position Prone Reps/Duration 3 min Comments walk out on hands from chest to hips Therapeutic Exercises Supine Exercises rhythmic stabilization Supine Exercise Name rhythmic stabilization Side right Resistance manual Reps/Minutes 4 min Comments provided multiplanar resistance at distal UE as pt stabilized Standing Exercises GH extension with dowel Standing Exercise Name GH extension with dowel Equipment Used yellow pvc Reps/Minutes 5 sec hold x 15 Comments cues to focus on scapular control vs inc ROM scaption in corner Reps/Minutes 2x5 3 sec hold Comments cuing x1 for scap stabilization eccentric then self corrections rest reps forward punch w/ band Equipment Used L3 band Comments occasional scap stabilization during eccentric direction leblanc walk Standing Exercise Name leblanc walk Side bilateral Resistance 3# Equipment Used db Reps/Minutes 300 feet Comments to promote RC activation Self-Care/Home Management Treatment Education Patient Education Body Mechanics,Joint Protection PT-OP-R Modalities Start: 05/29/20 13:11 Freq: Status: Active Protocol: Document 05/31/20 08:15 LRN (Rec: 05/31/20 08:52 LRN [id number]) Ultrasound Therapy Treatment Right Anterior Shoulder Treatment Duration (minutes) 8 Patient Position Supine Coupling Medium Ultrasound Gel Frequency Setting (mHz) 3 Mode Setting Pulsed Duty Cycle 50% Intensity Setting (w/cm2) 1.0 PT-OP-T Assessment and Plan Start: 05/29/20 13:11 Freq: Status: Active Protocol: Document 07/03/20 16:03 AW (Rec: 07/03/20 17:00 AW [id number]) Physical Therapy Assessment Goals Four Impairment sleep Short Term Goal (STG) Pt will implement sleep positioning strategies for reduced pain and improved restfulness of sleep. PARTIALLY MET: pt tends to sleep prone with arms overhead and has been unable to change STG Duration 06/26/20 Three Impairment pt unable to participate in yoga and other desired activities due to pain Short Term Goal (STG) Pt will be independent with [facility] for support of therapy services provide in clinic MET 07/03/20 STG Duration 06/26/20 Skilled Nursing Goal (LTG) Pt will be able to tolerate prone and quadruped yoga poses with modifications without increasing pain LTG Duration 07/24/20 Two Impairment pt scores 43% impairment on quickDASH Short Term Goal (STG) Pt will score 35% impairment or lower for improved ability to return to work STG Duration 06/26/20 Skilled Nursing Goal (LTG) Pt will score 25% impairment or lower for improved ability to return to work LTG Duration 07/24/20 One Impairment ROM Short Term Goal (STG) Pt will improve pain-free R GH abduction to 150 or greater to demonstrate improved ability to participate in daily activities. PARTIALLY MET: Pt has 145 degrees active flexion. STG Duration 06/26/20 Skilled Nursing Goal (LTG) Pt will improve pain-free R GH abduction to 160 or greater to demonstrate improved ability to participate in daily activities. LTG Duration 07/24/20 Assessment Summary Assessment Pt is progressing toward goals and reports decreased overall pain though she admits she has been less active recently. Pt was advised to do strengthening exercises every other day and ROM daily. Physical Therapy Plan Frequency and Duration Frequency of Treatment 1-2x/week Duration of Treatment up to 15 visits per current [place] authorization Plan of Care Start Date 05/29/20 Plan of Care End Date 07/24/20 Therapeutic Interventions Therapeutic Interventions Home Exercise Program,Joint Mobilizations,Manual Therapy, Neuromuscular Re-education, Patient/Caregiver Education, Soft Tissue Mobilization, Taping,Therapeutic Activities, Therapeutic Exercises Modalities Cold Pack/Ice Massage,Hot Packs Next Visit Focus/Plan Next Note Type Treatment Note Next Visit Plan assess response to RUE weightbearing on t ball. continue to progress scapular control and overall RUE strength. taping for support
--- NOTE | 2020-07-08 09:00 | PT.OTN ---
Current Diagnoses Pain in right shoulder (07/08/20) Abnormal posture (07/08/20) Physical Therapy Treatment Note PT-OP-A Visit Information Start: 05/29/20 13:11 Freq: Status: Active Protocol: Document 07/08/20 08:21 SP (Rec: 07/08/20 09:05 SP [id number]) Out-Patient Physical Therapy Visit Information Visit Information Visit Type Treatment Note Visit Start Time 08:21 Visit Stop Time 09:00 Total Visit Minutes 39 Visit Number 09/07 Number of TRANSPORTATION PLANNING ENGINEER Visits 1 PT-OP-B Current Condition Start: 05/29/20 13:11 Freq: Status: Active Protocol: Document 05/29/20 13:14 AW (Rec: 05/29/20 13:21 AW [id number]) Current Condition History of Current Condition Onset Date 1.5 years ago Current Complaints right shoulder pain History of Current Condition Pt reports gradual onset right shoulder pain worsening over the past 1.5 years. She has chronic neck pain but I just live with it. She states she has had a forced period of rest for her shoulder due to COVID stay at home order. 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 She fears she may not have a job to return to which is increasing her stress. Pt reports increased pain with heavy lifting and overhead movement. It feels like my arm is going to fall out of the socket. She takes tramadol during day and methocarbamol at night which help with her pain. Her pain gets as bad as 10/10 and is affecting her sleep. She is unable to sleep on her right side at all. She has had some difficulty with upper body dressing tasks but this has improved somewhat with rest over the last few months She lives alone with her rat terrier. She has been doing gentle yoga at home with modifications for her shoulder . Prior Treatments and Tests -PT for neck 20 years ago -MRI 12/09/19 1. Tendinosis and low to moderate grade articular and bursal surface partial- thickness tear involving distal supraspinatus and infraspinatus extending to musculotendinous junction. 2. Mild to moderate acromioclavicular joint and glenohumeral joint osteoarthritis. 3. Suggestion of focal superior anterior labral tear at 12 to 1:00 position. Suggestion of tendinosis and low-grade partial-thickness tear involving proximal intra- articular portion of long head biceps tendon. Future Testing and Treatments Planned Pt is considering surgery Treatment Goals Patient/Caregiver Goals Pt hopes to improve her upper body strength. Ultimately, she hopes to avoid surgery, but she expresses skepticism about the efficacy of physical therapy. 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 Pt stated feeling pretty good today, took an epson salt bath before came. PT-OP-F Manual Assessment Start: 05/29/20 13:11 Freq: Status: Active Protocol: Document 05/29/20 13:14 AW (Rec: 05/30/20 17:32 AW [id number]) Manual Assessments Soft Tissue Assessment Soft Tissue Mobility Assessment Tight and tender to palpation at insertion of infraspinatus/ supraspinatus. Tender and painful pec major and minor Joint Mobility Assessment Joint Mobility Assessment Reduced and painful posterior glides R GH joint PT-OP-H Neuro Start: 05/29/20 13:11 Freq: Status: Active Protocol: Document 05/29/20 13:14 AW (Rec: 05/30/20 17:32 AW [id number]) Sensation Evaluation Gross Sensation Gross Sensation Left UE Impaired,Right UE Impaired Sensation Description Numbness,Tingling,Pins & [place] Comments Summary Comments Pt reports history of bilateral UE paresthesias but that they have improved over the years. Minimal complaints at this time. Deep Tendon Reflex & Clonus Assessment Deep Tendon Reflex Bilateral Tricep Deep Tendon Reflex 1+ Diminished Bilateral Bicep Deep Tendon Reflex 2+ Normal PT-OP-J Posture/Palpation/Skin Start: 05/29/20 13:11 Freq: Status: Active Protocol: Document 05/29/20 13:14 AW (Rec: 05/30/20 17:32 AW [id number]) Posture Evaluation Position Sitting Evaluation View posterior and lateral Head/C-Spine Posture Extended Shoulder Posture (L) Rounded,(R) Rounded,(L) Forward,(R) Forward Scapula Posture (L) Protracted,(R) Protracted, (L) Winged,(R) Winged Arm Posture (L) Internally Rotated,(R) Internally Rotated Comments Posture Comments Winged and protracted scapulae at rest. Rounded shoulders bilaterally. PT-OP-K Range of Motion Start: 05/29/20 13:11 Freq: Status: Active Protocol: Document 05/29/20 13:14 AW (Rec: 05/30/20 17:32 AW [id number]) Cervical Spine Range of Motion Cervical Spine Active Degrees Testing Position Sitting Flexion 40 Extension 40 Rotation Left 35 Rotation Right 40 Lateral Flexion Left 25 Lateral Flexion Right 25 ROM Limitations Soft Tissue Tightness Shoulder Goniometric Range of Motion Shoulder Right Active Flexion 155 Extension 30 Abduction 140 External Rotation at 90 degrees 60 Abduction Internal Rotation Behind Back (text) T10 Left Active Flexion 165 Extension 40 Abduction 165 External Rotation at 90 degrees 80 Abduction Internal Rotation Behind Back (text) T6 Shoulder ROM Limitations Shoulder ROM Limitations Pain Elbow/Forearm Range of Motion Elbow/Forearm ROM Limitations Comments Elbow AROM WNL PT-OP-L Special Tests Start: 05/29/20 13:11 Freq: Status: Active Protocol: Document 05/29/20 13:14 AW (Rec: 05/30/20 17:32 AW [id number]) Special Tests Shoulder Special Tests Bishop Tommy Impingement Test Results R (+) Comments mildly painful with scapular stabilization. Also performed infraspinatus MMT which was positive on the right side for pain and painful arc which was positive on the right side. Drop Arm Rotator Cuff Test Results R (+) Comments able to hold but with shoulder shrugging and pain PT-OP-M Strength Start: 05/29/20 13:11 Freq: Status: Active Protocol: Document 05/29/20 13:14 AW (Rec: 05/30/20 17:32 AW [id number]) Scapula Strength Scapula Manual Muscle Testing Right Comments 4/5 protraction bilaterally Shoulder Strength Shoulder Manual Muscle Testing Right Flexion 4 Good Extension 4+ Good+ Abduction (C5) 4 Good External Rotation 4 Good Internal Rotation 4 Good Left Flexion 5 Normal Extension 5 Normal Abduction (C5) 5 Normal External Rotation 4+ Good+ Internal Rotation 5 Normal Elbow/Forearm Strength Elbow and Forearm Manual Muscle Testing Right Comments Grossly 4+/5 bilaterally PT-OP-Q Treatments Start: 05/29/20 13:11 Freq: Status: Active Protocol: Document 07/08/20 08:21 SP (Rec: 07/08/20 09:05 SP [id number]) Cardio Equipment Upper Body Ergometer (UBE) Duration (Minutes) 6 Seat Position 9 Height 3 Other 60>80 RPMs, 3 min f/b, feels good and tiring Gym Equipment Therapeutic Ball Prone on knees SB Ys Ball Size/Color blue Body Position Prone Reps/Duration 2x5 Comments cued PPT, core facilitation palms facing each midline Prone Plank SB shld taps Exercise Details shld taps Ball Size/Color Blue Body Position Prone Reps/Duration 2x5 alternate BUE Comments cued core facilitation prone walk out Exercise Details prone walk out Ball Size/Color 45 cm/blue Body Position Prone Reps/Duration 3 min Comments walk out on hands from chest to hips Therapeutic Exercises Standing Exercises R shld IR towel stretch Side right Reps/Minutes 2-3x30 sec Comments cued humerus close to trunk GH extension with dowel Standing Exercise Name GH extension with towel Equipment Used Towel Reps/Minutes 5 sec hold x 15 Comments cues to focus on scapular control vs inc ROM scaption in corner Reps/Minutes 3x 30 sec hold stretch Comments cuing x1 for scap stabilization eccentric then self corrections rest reps forward punch w/ band Equipment Used L3 band Comments occasional scap stabilization during eccentric direction leblanc walk Standing Exercise Name leblanc walk Side bilateral Resistance 3# 170 ft, 4# 170 ft, 5# 170 ft x2 laps Equipment Used db Comments to promote RC activation, good response feels supported PT-OP-R Modalities Start: 05/29/20 13:11 Freq: Status: Active Protocol: Document 05/31/20 08:15 LRN (Rec: 05/31/20 08:52 LRN [id number]) Ultrasound Therapy Treatment Right Anterior Shoulder Treatment Duration (minutes) 8 Patient Position Supine Coupling Medium Ultrasound Gel Frequency Setting (mHz) 3 Mode Setting Pulsed Duty Cycle 50% Intensity Setting (w/cm2) 1.0 PT-OP-T Assessment and Plan Start: 05/29/20 13:11 Freq: Status: Active Protocol: Document 07/08/20 08:21 SP (Rec: 07/08/20 09:05 SP [id number]) Physical Therapy Assessment Goals Four Impairment sleep Short Term Goal (STG) Pt will implement sleep positioning strategies for reduced pain and improved restfulness of sleep. PARTIALLY MET: pt tends to sleep prone with arms overhead and has been unable to change STG Duration 06/26/20 Three Impairment pt unable to participate in yoga and other desired activities due to pain Short Term Goal (STG) Pt will be independent with HEP for support of therapy services provide in clinic MET 07/03/20 STG Duration 06/26/20 Program Strategist Goal (LTG) Pt will be able to tolerate prone and quadruped yoga poses with modifications without increasing pain LTG Duration 07/24/20 Two Impairment pt scores 43% impairment on quickDASH Short Term Goal (STG) Pt will score 35% impairment or lower for improved ability to return to work STG Duration 06/26/20 Program Strategist Goal (LTG) Pt will score 25% impairment or lower for improved ability to return to work LTG Duration 07/24/20 One Impairment ROM Short Term Goal (STG) Pt will improve pain-free R GH abduction to 150 or greater to demonstrate improved ability to participate in daily activities. PARTIALLY MET: Pt has 145 degrees active flexion. STG Duration 06/26/20 Fci Goal (LTG) Pt will improve pain-free R GH abduction to 160 or greater to demonstrate improved ability to participate in daily activities. LTG Duration 07/24/20 Assessment Summary Assessment Pt is progressing with scap stabilization prone/ standing HEP then ROM/ stretching today with reported decreased tightness in R shld end of tx, feels good. Will try not taping today and see how R shld feels. Next tx add pic of leblanc carry for home. Physical Therapy Plan Frequency and Duration Frequency of Treatment 1-2x/week Duration of Treatment up to 15 visits per current [place] authorization Plan of Care Start Date 05/29/20 Plan of Care End Date 07/24/20 Therapeutic Interventions Therapeutic Interventions Home Exercise Program,Joint Mobilizations,Manual Therapy, Neuromuscular Re-education, Patient/Caregiver Education, Soft Tissue Mobilization, Taping,Therapeutic Activities, Therapeutic Exercises Modalities Cold Pack/Ice Massage,Hot Packs Next Visit Focus/Plan Next Note Type Treatment Note Next Visit Plan assess response to RUE weightbearing on t ball shld tap, Y, T. Continue to progress scapular control and overall RUE strength. taping for support
--- NOTE | 2020-07-15 11:15 | PT.OTN ---
Current Diagnoses Pain in right shoulder (07/15/20) Abnormal posture (07/15/20) Physical Therapy Treatment Note PT-OP-A Visit Information Start: 05/29/20 13:11 Freq: Status: Active Protocol: Document 07/15/20 10:33 SP (Rec: 07/15/20 11:29 SP [id number]) Out-Patient Physical Therapy Visit Information Visit Information Visit Type Treatment Note Visit Start Time 10:33 Visit Stop Time 11:15 Total Visit Minutes 42 Visit Number 10/08 Number of PACKAGING COORDINATOR Visits 2 PT-OP-B Current Condition Start: 05/29/20 13:11 Freq: Status: Active Protocol: Document 05/29/20 13:14 AW (Rec: 05/29/20 13:21 AW [id number]) Current Condition History of Current Condition Onset Date 1.5 years ago Current Complaints right shoulder pain History of Current Condition Pt reports gradual onset right shoulder pain worsening over the past 1.5 years. She has chronic neck pain but I just live with it. She states she has had a forced period of rest for her shoulder due to COVID stay at home order. 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 She fears she may not have a job to return to which is increasing her stress. Pt reports increased pain with heavy lifting and overhead movement. It feels like my arm is going to fall out of the socket. She takes tramadol during day and methocarbamol at night which help with her pain. Her pain gets as bad as 10/10 and is affecting her sleep. She is unable to sleep on her right side at all. She has had some difficulty with upper body dressing tasks but this has improved somewhat with rest over the last few months She lives alone with her rat terrier. She has been doing gentle yoga at home with modifications for her shoulder . Prior Treatments and Tests -PT for neck 20 years ago -MRI 12/09/19 1. Tendinosis and low to moderate grade articular and bursal surface partial- thickness tear involving distal supraspinatus and infraspinatus extending to musculotendinous junction. 2. Mild to moderate acromioclavicular joint and glenohumeral joint osteoarthritis. 3. Suggestion of focal superior anterior labral tear at 12 to 1:00 position. Suggestion of tendinosis and low-grade partial-thickness tear involving proximal intra- articular portion of long head biceps tendon. Future Testing and Treatments Planned Pt is considering surgery Treatment Goals Patient/Caregiver Goals Pt hopes to improve her upper body strength. Ultimately, she hopes to avoid surgery, but she expresses skepticism about the efficacy of physical therapy. 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 Noted swelling pocket over L anterolateral scalene region (racquetball diameter and 1/4 depth), also B elbows and L lateral ribcage hurts and stated has scratches on her back from the dog but not assessed. She called the police when got into her car for assist, took 1.5 hrs to respond and didn't want to leave so no one else got hurt. She reported dog scratched up her car trying to get in until police arrived. Pt stated almost didn't come but wanted to see what PT could do to feel better. Pt acquired small stability ball, requested astrics one can do at home on paint spray inspector was provided . Pt is having xray per physician request this weekend . PT-OP-F Manual Assessment Start: 05/29/20 13:11 Freq: Status: Active Protocol: Document 05/29/20 13:14 AW (Rec: 05/30/20 17:32 AW [id number]) Manual Assessments Soft Tissue Assessment Soft Tissue Mobility Assessment Tight and tender to palpation at insertion of infraspinatus/ supraspinatus. Tender and painful pec major and minor Joint Mobility Assessment Joint Mobility Assessment Reduced and painful posterior glides R GH joint PT-OP-H Neuro Start: 05/29/20 13:11 Freq: Status: Active Protocol: Document 05/29/20 13:14 AW (Rec: 05/30/20 17:32 AW [id number]) Sensation Evaluation Gross Sensation Gross Sensation Left UE Impaired,Right UE Impaired Sensation Description Numbness,Tingling,Pins & [place] Comments Summary Comments Pt reports history of bilateral UE paresthesias but that they have improved over the years. Minimal complaints at this time. Deep Tendon Reflex & Clonus Assessment Deep Tendon Reflex Bilateral Tricep Deep Tendon Reflex 1+ Diminished Bilateral Bicep Deep Tendon Reflex 2+ Normal PT-OP-J Posture/Palpation/Skin Start: 05/29/20 13:11 Freq: Status: Active Protocol: Document 05/29/20 13:14 AW (Rec: 05/30/20 17:32 AW [id number]) Posture Evaluation Position Sitting Evaluation View posterior and lateral Head/C-Spine Posture Extended Shoulder Posture (L) Rounded,(R) Rounded,(L) Forward,(R) Forward Scapula Posture (L) Protracted,(R) Protracted, (L) Winged,(R) Winged Arm Posture (L) Internally Rotated,(R) Internally Rotated Comments Posture Comments Winged and protracted scapulae at rest. Rounded shoulders bilaterally. PT-OP-K Range of Motion Start: 05/29/20 13:11 Freq: Status: Active Protocol: Document 05/29/20 13:14 AW (Rec: 05/30/20 17:32 AW [id number]) Cervical Spine Range of Motion Cervical Spine Active Degrees Testing Position Sitting Flexion 40 Extension 40 Rotation Left 35 Rotation Right 40 Lateral Flexion Left 25 Lateral Flexion Right 25 ROM Limitations Soft Tissue Tightness Shoulder Goniometric Range of Motion Shoulder Right Active Flexion 155 Extension 30 Abduction 140 External Rotation at 90 degrees 60 Abduction Internal Rotation Behind Back (text) T10 Left Active Flexion 165 Extension 40 Abduction 165 External Rotation at 90 degrees 80 Abduction Internal Rotation Behind Back (text) T6 Shoulder ROM Limitations Shoulder ROM Limitations Pain Elbow/Forearm Range of Motion Elbow/Forearm ROM Limitations Comments Elbow AROM WNL PT-OP-L Special Tests Start: 05/29/20 13:11 Freq: Status: Active Protocol: Document 05/29/20 13:14 AW (Rec: 05/30/20 17:32 AW [id number]) Special Tests Shoulder Special Tests Bishop Tommy Impingement Test Results R (+) Comments mildly painful with scapular stabilization. Also performed infraspinatus MMT which was positive on the right side for pain and painful arc which was positive on the right side. Drop Arm Rotator Cuff Test Results R (+) Comments able to hold but with shoulder shrugging and pain PT-OP-M Strength Start: 05/29/20 13:11 Freq: Status: Active Protocol: Document 05/29/20 13:14 AW (Rec: 05/30/20 17:32 AW [id number]) Scapula Strength Scapula Manual Muscle Testing Right Comments 4/5 protraction bilaterally Shoulder Strength Shoulder Manual Muscle Testing Right Flexion 4 Good Extension 4+ Good+ Abduction (C5) 4 Good External Rotation 4 Good Internal Rotation 4 Good Left Flexion 5 Normal Extension 5 Normal Abduction (C5) 5 Normal External Rotation 4+ Good+ Internal Rotation 5 Normal Elbow/Forearm Strength Elbow and Forearm Manual Muscle Testing Right Comments Grossly 4+/5 bilaterally PT-OP-Q Treatments Start: 05/29/20 13:11 Freq: Status: Active Protocol: Document 07/15/20 10:33 SP (Rec: 07/15/20 11:29 SP [id number]) Therapeutic Exercises Supine Exercises rhythmic stabilization Supine Exercise Name ABCs Side right Equipment Used 2# DB 5# DB Reps/Minutes A-Z 1 set each Comments cued quick movements good tolerance, relax neck mm Sidelying Exercises Shld ER DB Side right Resistance 2# DB Reps/Minutes 2x10 Standing Exercises leblanc walk Standing Exercise Name leblanc walk Side bilateral Resistance 5# 170 ft x2 laps Equipment Used db Comments to promote RC activation, good response feels supported Manual Therapy Treatment Soft Tissue Mobilization Stretching Body Location L upper trap Body Position Supine Comments manual upper traps, lev scap, cervical paraspinals Body Location upper traps, lev scap, cervical paraspinals, occipital release Mobilization Type Cross-Friction,Myofascial Release Intensity/Depth Moderate Body Position Hooklying Comments Improved lessening L anterolateral neck edema. PT-OP-R Modalities Start: 05/29/20 13:11 Freq: Status: Active Protocol: Document 05/31/20 08:15 LRN (Rec: 05/31/20 08:52 LRN [id number]) Ultrasound Therapy Treatment Right Anterior Shoulder Treatment Duration (minutes) 8 Patient Position Supine Coupling Medium Ultrasound Gel Frequency Setting (mHz) 3 Mode Setting Pulsed Duty Cycle 50% Intensity Setting (w/cm2) 1.0 PT-OP-T Assessment and Plan Start: 05/29/20 13:11 Freq: Status: Active Protocol: Document 07/15/20 10:33 SP (Rec: 07/15/20 11:29 SP [id number]) Physical Therapy Assessment Goals Four Impairment sleep Short Term Goal (STG) Pt will implement sleep positioning strategies for reduced pain and improved restfulness of sleep. PARTIALLY MET: pt tends to sleep prone with arms overhead and has been unable to change STG Duration 06/26/20 Three Impairment pt unable to participate in yoga and other desired activities due to pain Short Term Goal (STG) Pt will be independent with [facility] for support of therapy services provide in clinic MET 07/03/20 STG Duration 06/26/20 Reserves Clerk Goal (LTG) Pt will be able to tolerate prone and quadruped yoga poses with modifications without increasing pain LTG Duration 07/24/20 Two Impairment pt scores 43% impairment on quickDASH Short Term Goal (STG) Pt will score 35% impairment or lower for improved ability to return to work STG Duration 06/26/20 Correction Goal (LTG) Pt will score 25% impairment or lower for improved ability to return to work LTG Duration 07/24/20 One Impairment ROM Short Term Goal (STG) Pt will improve pain-free R GH abduction to 150 or greater to demonstrate improved ability to participate in daily activities. PARTIALLY MET: Pt has 145 degrees active flexion. STG Duration 06/26/20 Reserves Clerk Goal (LTG) Pt will improve pain-free R GH abduction to 160 or greater to demonstrate improved ability to participate in daily activities. LTG Duration 07/24/20 Assessment Summary Assessment Tx focused on manual c/s and close chain R shld with good tolerance. Pt able to increase resistance to R shld ex today . Did see improvement in L neck swelling post manual and recommended to see her physician and applying cold only, verbal understanding. Pt decline cold modality. No, I will do this at home. I feel alot better than when came in . Physical Therapy Plan Frequency and Duration Frequency of Treatment 1-2x/week Duration of Treatment up to 15 visits per current [place] authorization Plan of Care Start Date 05/29/20 Plan of Care End Date 07/24/20 Therapeutic Interventions Therapeutic Interventions Home Exercise Program,Joint Mobilizations,Manual Therapy, Neuromuscular Re-education, Patient/Caregiver Education, Soft Tissue Mobilization, Taping,Therapeutic Activities, Therapeutic Exercises Modalities Cold Pack/Ice Massage,Hot Packs Next Visit Focus/Plan Next Note Type Treatment Note Next Visit Plan Assess response to last tx: manual neck due to dog attack and CC R shld HEP review with good feedback. Continue to progress scapular control and overall RUE strength. taping for support
--- NOTE | 2020-07-17 16:32 | PT.OTN ---
Current Diagnoses Pain in right shoulder (07/17/20) Abnormal posture (07/17/20) Physical Therapy Treatment Note PT-OP-A Visit Information Start: 05/29/20 13:11 Freq: Status: Active Protocol: Document 07/17/20 16:32 AW (Rec: 07/18/20 16:35 AW [id number]) Out-Patient Physical Therapy Visit Information Visit Information Visit Type Treatment Note Visit Start Time 11:17 Visit Stop Time 12:00 Total Visit Minutes 43 Visit Number 11/07 Number of [employer]IS[employer] READER Visits 0 PT-OP-B Current Condition Start: 05/29/20 13:11 Freq: Status: Active Protocol: Document 05/29/20 13:14 AW (Rec: 05/29/20 13:21 AW [id number]) Current Condition History of Current Condition Onset Date 1.5 years ago Current Complaints right shoulder pain History of Current Condition Pt reports gradual onset right shoulder pain worsening over the past 1.5 years. She has chronic neck pain but I just live with it. She states she has had a forced period of rest for her shoulder due to COVID stay at home order. 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 She fears she may not have a job to return to which is increasing her stress. Pt reports increased pain with heavy lifting and overhead movement. It feels like my arm is going to fall out of the socket. She takes tramadol during day and methocarbamol at night which help with her pain. Her pain gets as bad as 10/10 and is affecting her sleep. She is unable to sleep on her right side at all. She has had some difficulty with upper body dressing tasks but this has improved somewhat with rest over the last few months She lives alone with her rat terrier. She has been doing gentle yoga at home with modifications for her shoulder . Prior Treatments and Tests -PT for neck 20 years ago -MRI 12/09/19 1. Tendinosis and low to moderate grade articular and bursal surface partial- thickness tear involving distal supraspinatus and infraspinatus extending to musculotendinous junction. 2. Mild to moderate acromioclavicular joint and glenohumeral joint osteoarthritis. 3. Suggestion of focal superior anterior labral tear at 12 to 1:00 position. Suggestion of tendinosis and low-grade partial-thickness tear involving proximal intra- articular portion of long head biceps tendon. Future Testing and Treatments Planned Pt is considering surgery Treatment Goals Patient/Caregiver Goals Pt hopes to improve her upper body strength. Ultimately, she hopes to avoid surgery, but she expresses skepticism about the efficacy of physical therapy. 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 [facility] and is advised to request authorization for more visits. Patient Questionnaires Quick Dash- Upper Extremity Quick Dash UE Score 63 Quick Dash UE Impairment 60 to 79% Impaired (Score 60- 79) PT-OP-F Manual Assessment Start: 05/29/20 13:11 Freq: Status: Active Protocol: Document 05/29/20 13:14 AW (Rec: 05/30/20 17:32 AW [id number]) Manual Assessments Soft Tissue Assessment Soft Tissue Mobility Assessment Tight and tender to palpation at insertion of infraspinatus/ supraspinatus. Tender and painful pec major and minor Joint Mobility Assessment Joint Mobility Assessment Reduced and painful posterior glides R GH joint PT-OP-H Neuro Start: 05/29/20 13:11 Freq: Status: Active Protocol: Document 05/29/20 13:14 AW (Rec: 05/30/20 17:32 AW [id number]) Sensation Evaluation Gross Sensation Gross Sensation Left UE Impaired,Right UE Impaired Sensation Description Numbness,Tingling,Pins & [place] Comments Summary Comments Pt reports history of bilateral UE paresthesias but that they have improved over the years. Minimal complaints at this time. Deep Tendon Reflex & Clonus Assessment Deep Tendon Reflex Bilateral Tricep Deep Tendon Reflex 1+ Diminished Bilateral Bicep Deep Tendon Reflex 2+ Normal PT-OP-J Posture/Palpation/Skin Start: 05/29/20 13:11 Freq: Status: Active Protocol: Document 05/29/20 13:14 AW (Rec: 05/30/20 17:32 AW [id number]) Posture Evaluation Position Sitting Evaluation View posterior and lateral Head/C-Spine Posture Extended Shoulder Posture (L) Rounded,(R) Rounded,(L) Forward,(R) Forward Scapula Posture (L) Protracted,(R) Protracted, (L) Winged,(R) Winged Arm Posture (L) Internally Rotated,(R) Internally Rotated Comments Posture Comments Winged and protracted scapulae at rest. Rounded shoulders bilaterally. PT-OP-K Range of Motion Start: 05/29/20 13:11 Freq: Status: Active Protocol: Document 05/29/20 13:14 AW (Rec: 05/30/20 17:32 AW [id number]) Cervical Spine Range of Motion Cervical Spine Active Degrees Testing Position Sitting Flexion 40 Extension 40 Rotation Left 35 Rotation Right 40 Lateral Flexion Left 25 Lateral Flexion Right 25 ROM Limitations Soft Tissue Tightness Shoulder Goniometric Range of Motion Shoulder Right Active Flexion 155 Extension 30 Abduction 140 External Rotation at 90 degrees 60 Abduction Internal Rotation Behind Back (text) T10 Left Active Flexion 165 Extension 40 Abduction 165 External Rotation at 90 degrees 80 Abduction Internal Rotation Behind Back (text) T6 Shoulder ROM Limitations Shoulder ROM Limitations Pain Elbow/Forearm Range of Motion Elbow/Forearm ROM Limitations Comments Elbow AROM WNL PT-OP-L Special Tests Start: 05/29/20 13:11 Freq: Status: Active Protocol: Document 05/29/20 13:14 AW (Rec: 05/30/20 17:32 AW [id number]) Special Tests Shoulder Special Tests [place] Impingement Test Results R (+) Comments mildly painful with scapular stabilization. Also performed infraspinatus MMT which was positive on the right side for pain and painful arc which was positive on the right side. Drop Arm Rotator Cuff Test Results R (+) Comments able to hold but with shoulder shrugging and pain PT-OP-M Strength Start: 05/29/20 13:11 Freq: Status: Active Protocol: Document 05/29/20 13:14 AW (Rec: 05/30/20 17:32 AW [id number]) Scapula Strength Scapula Manual Muscle Testing Right Comments 4/5 protraction bilaterally Shoulder Strength Shoulder Manual Muscle Testing Right Flexion 4 Good Extension 4+ Good+ Abduction (C5) 4 Good External Rotation 4 Good Internal Rotation 4 Good Left Flexion 5 Normal Extension 5 Normal Abduction (C5) 5 Normal External Rotation 4+ Good+ Internal Rotation 5 Normal Elbow/Forearm Strength Elbow and Forearm Manual Muscle Testing Right Comments Grossly 4+/5 bilaterally PT-OP-Q Treatments Start: 05/29/20 13:11 Freq: Status: Active Protocol: Document 07/17/20 16:32 AW (Rec: 07/21/20 16:32 AW [id number]) Therapeutic Exercises Supine Exercises rhythmic stabilization Supine Exercise Name ABCs Side right Equipment Used 2# DB 5# DB Reps/Minutes A-Z 1 set each Comments cued quick movements good tolerance, relax neck mm Sidelying Exercises Shld ER DB Side right Resistance 2# DB Reps/Minutes 2x10 Standing Exercises leblanc walk Standing Exercise Name leblanc walk Side bilateral Resistance 5# 170 ft x2 laps Equipment Used db Comments to promote RC activation, good response feels supported Manual Therapy Treatment Soft Tissue Mobilization Stretching Body Location L upper trap Body Position Supine Comments manual upper traps, lev scap, cervical paraspinals Body Location upper traps, lev scap, cervical paraspinals, occipital release Mobilization Type Cross-Friction,Myofascial Release Intensity/Depth Moderate Body Position Hooklying Comments L anterolateral neck edema remains but is improved post manual therapy. PT-OP-R Modalities Start: 05/29/20 13:11 Freq: Status: Active Protocol: Document 05/31/20 08:15 LRN (Rec: 05/31/20 08:52 LRN [id number]) Ultrasound Therapy Treatment Right Anterior Shoulder Treatment Duration (minutes) 8 Patient Position Supine Coupling Medium Ultrasound Gel Frequency Setting (mHz) 3 Mode Setting Pulsed Duty Cycle 50% Intensity Setting (w/cm2) 1.0 PT-OP-T Assessment and Plan Start: 05/29/20 13:11 Freq: Status: Active Protocol: Document 07/17/20 16:32 AW (Rec: 07/21/20 16:32 AW [id number]) Physical Therapy Assessment Goals Four Impairment sleep Short Term Goal (STG) Pt will implement sleep positioning strategies for reduced pain and improved restfulness of sleep. PARTIALLY MET: pt tends to sleep prone with arms overhead and has been unable to change STG Duration 06/26/20 Three Impairment pt unable to participate in yoga and other desired activities due to pain Short Term Goal (STG) Pt will be independent with [facility] for support of therapy services provide in clinic MET 07/03/20 STG Duration 06/26/20 Jail Goal (LTG) Pt will be able to tolerate prone and quadruped yoga poses with modifications without increasing pain LTG Duration 07/24/20 Two Impairment pt scores 43% impairment on quickDASH Short Term Goal (STG) Pt will score 35% impairment or lower for improved ability to return to work NOT MET: Pt now scores 63% impairment following recent dog attack. STG Duration 06/26/20 Occupational Therapist Assistants Goal (LTG) Pt will score 25% impairment or lower for improved ability to return to work LTG Duration 07/24/20 One Impairment ROM Short Term Goal (STG) Pt will improve pain-free R GH abduction to 150 or greater to demonstrate improved ability to participate in daily activities. PARTIALLY MET: Pt has 145 degrees active flexion. STG Duration 06/26/20 Occupational Therapist Assistants Goal (LTG) Pt will improve pain-free R GH abduction to 160 or greater to demonstrate improved ability to participate in daily activities. LTG Duration 07/24/20 Assessment Summary Assessment Tx continued focus on manual therapy c/spine. Pt states she [facility] but no further PT visits scheduled. Encouraged pt to go on wait list for next available since she has 4 visits left on her current authorization. Physical Therapy Plan Frequency and Duration Frequency of Treatment 1-2x/week Duration of Treatment up to 15 visits per current [facility] authorization Plan of Care Start Date 07/17/20 Plan of Care End Date 09/11/20 Therapeutic Interventions Therapeutic Interventions Home Exercise Program,Joint Mobilizations,Manual Therapy, Neuromuscular Re-education, Patient/Caregiver Education, Soft Tissue Mobilization, Taping,Therapeutic Activities, Therapeutic Exercises Modalities Cold Pack/Ice Massage,Hot Packs Next Visit Focus/Plan Next Note Type Treatment Note Next Visit Plan Assess response to last tx: manual neck due to dog attack and CC R shld HEP review with good feedback. Continue to progress scapular control and overall RUE strength. taping for support
--- NOTE | 2020-07-17 16:33 | PT.OPPOC ---
Physical, Occupational & Speech Therapy At [facility] Current Diagnoses Pain in right shoulder (07/17/20) Abnormal posture (07/17/20) Visit Care Team Role Provider Type Vale Tovar MD Family Provider Non-Staff Specialty: Family Practice Address: [address] [place] [address], [id number] Email: Steven Parks PA-C Attending Provider Non-Staff Primary Care Provider Referring Provider Specialty: Medical Address: [address] [place] [address], [id number] Email: Plan Of Care PT-OP-T Assessment and Plan Start: 05/29/20 13:11 Freq: Status: Active Protocol: Document 07/17/20 16:32 AW (Rec: 07/21/20 16:32 AW [id number]) Physical Therapy Assessment Goals Four Impairment sleep Short Term Goal (STG) Pt will implement sleep positioning strategies for reduced pain and improved restfulness of sleep. PARTIALLY MET: pt tends to sleep prone with arms overhead and has been unable to change STG Duration 06/26/20 Three Impairment pt unable to participate in yoga and other desired activities due to pain Short Term Goal (STG) Pt will be independent with [facility] for support of therapy services provide in clinic MET 07/03/20 STG Duration 06/26/20 Alf Goal (LTG) Pt will be able to tolerate prone and quadruped yoga poses with modifications without increasing pain LTG Duration 07/24/20 Two Impairment pt scores 43% impairment on quickDASH Short Term Goal (STG) Pt will score 35% impairment or lower for improved ability to return to work NOT MET: Pt now scores 63% impairment following recent dog attack. STG Duration 06/26/20 Alf Goal (LTG) Pt will score 25% impairment or lower for improved ability to return to work LTG Duration 07/24/20 One Impairment ROM Short Term Goal (STG) Pt will improve pain-free R GH abduction to 150 or greater to demonstrate improved ability to participate in daily activities. PARTIALLY MET: Pt has 145 degrees active flexion. STG Duration 06/26/20 Him Specialist Goal (LTG) Pt will improve pain-free R GH abduction to 160 or greater to demonstrate improved ability to participate in daily activities. LTG Duration 07/24/20 Assessment Summary Assessment Tx continued focus on manual therapy c/spine. Pt states she [facility] but no further PT visits scheduled. Encouraged pt to go on wait list for next available since she has 4 visits left on her current authorization. Physical Therapy Plan Frequency and Duration Frequency of Treatment 1-2x/week Duration of Treatment up to 15 visits per current [facility] authorization Plan of Care Start Date 07/17/20 Plan of Care End Date 09/11/20 Therapeutic Interventions Therapeutic Interventions Home Exercise Program,Joint Mobilizations,Manual Therapy, Neuromuscular Re-education, Patient/Caregiver Education, Soft Tissue Mobilization, Taping,Therapeutic Activities, Therapeutic Exercises Modalities Cold Pack/Ice Massage,Hot Packs Next Visit Focus/Plan Next Note Type Treatment Note Next Visit Plan Assess response to last tx: manual neck due to dog attack and CC R shld HEP review with good feedback. Continue to progress scapular control and overall RUE strength. taping for support Plan of Care Dates Plan of Care Start Date 07/17/20 Plan of Care End Date 09/11/20 Electronically Signed by: Crystal Trejo, PT 07/21/20 0307 Please Sign and Return: I have reviewed this Plan of Care and certify that the skilled therapy services above are required to meet the patient?s needs. Physician Signature Date Printed Name and Credentials Clinical Instructor Signature Printed Name and Credentials
--- NOTE | 2020-07-22 10:32 | PT.OTN ---
Current Diagnoses Pain in right shoulder (07/22/20) Abnormal posture (07/22/20) Physical Therapy Treatment Note PT-OP-A Visit Information Start: 05/29/20 13:11 Freq: Status: Active Protocol: Document 07/22/20 09:51 SP (Rec: 07/22/20 10:43 SP [id number]) Out-Patient Physical Therapy Visit Information Visit Information Visit Type Treatment Note Visit Start Time 09:51 Visit Stop Time 10:32 Total Visit Minutes 41 Visit Number Number of SYSTEMS SUPPORT OFFICER Visits 1 PT-OP-B Current Condition Start: 05/29/20 13:11 Freq: Status: Active Protocol: Document 05/29/20 13:14 AW (Rec: 05/29/20 13:21 AW [id number]) Current Condition History of Current Condition Onset Date 1.5 years ago Current Complaints right shoulder pain History of Current Condition Pt reports gradual onset right shoulder pain worsening over the past 1.5 years. She has chronic neck pain but I just live with it. She states she has had a forced period of rest for her shoulder due to COVID stay at home order. 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 She fears she may not have a job to return to which is increasing her stress. Pt reports increased pain with heavy lifting and overhead movement. It feels like my arm is going to fall out of the socket. She takes tramadol during day and methocarbamol at night which help with her pain. Her pain gets as bad as 10/10 and is affecting her sleep. She is unable to sleep on her right side at all. She has had some difficulty with upper body dressing tasks but this has improved somewhat with rest over the last few months She lives alone with her rat terrier. She has been doing gentle yoga at home with modifications for her shoulder . Prior Treatments and Tests -PT for neck 20 years ago -MRI 12/09/19 1. Tendinosis and low to moderate grade articular and bursal surface partial- thickness tear involving distal supraspinatus and infraspinatus extending to musculotendinous junction. 2. Mild to moderate acromioclavicular joint and glenohumeral joint osteoarthritis. 3. Suggestion of focal superior anterior labral tear at 12 to 1:00 position. Suggestion of tendinosis and low-grade partial-thickness tear involving proximal intra- articular portion of long head biceps tendon. Future Testing and Treatments Planned Pt is considering surgery Treatment Goals Patient/Caregiver Goals Pt hopes to improve her upper body strength. Ultimately, she hopes to avoid surgery, but she expresses skepticism about the efficacy of physical therapy. 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 Pt stated was still recovering but feeling better over the weeken on Sat from the dog attack on 07/13. Did alot of sleeping and was able to perform her TB HEP exercises. Pt stated saw her physicians PA and had some xrays of whole upper body completed and gave feedback with assessment of L edema pocket over PT-OP-F Manual Assessment Start: 05/29/20 13:11 Freq: Status: Active Protocol: Document 05/29/20 13:14 AW (Rec: 05/30/20 17:32 AW [id number]) Manual Assessments Soft Tissue Assessment Soft Tissue Mobility Assessment Tight and tender to palpation at insertion of infraspinatus/ supraspinatus. Tender and painful pec major and minor Joint Mobility Assessment Joint Mobility Assessment Reduced and painful posterior glides R GH joint PT-OP-H Neuro Start: 05/29/20 13:11 Freq: Status: Active Protocol: Document 05/29/20 13:14 AW (Rec: 05/30/20 17:32 AW [id number]) Sensation Evaluation Gross Sensation Gross Sensation Left UE Impaired,Right UE Impaired Sensation Description Numbness,Tingling,Pins & [place] Comments Summary Comments Pt reports history of bilateral UE paresthesias but that they have improved over the years. Minimal complaints at this time. Deep Tendon Reflex & Clonus Assessment Deep Tendon Reflex Bilateral Tricep Deep Tendon Reflex 1+ Diminished Bilateral Bicep Deep Tendon Reflex 2+ Normal PT-OP-J Posture/Palpation/Skin Start: 05/29/20 13:11 Freq: Status: Active Protocol: Document 05/29/20 13:14 AW (Rec: 05/30/20 17:32 AW [id number]) Posture Evaluation Position Sitting Evaluation View posterior and lateral Head/C-Spine Posture Extended Shoulder Posture (L) Rounded,(R) Rounded,(L) Forward,(R) Forward Scapula Posture (L) Protracted,(R) Protracted, (L) Winged,(R) Winged Arm Posture (L) Internally Rotated,(R) Internally Rotated Comments Posture Comments Winged and protracted scapulae at rest. Rounded shoulders bilaterally. PT-OP-K Range of Motion Start: 05/29/20 13:11 Freq: Status: Active Protocol: Document 05/29/20 13:14 AW (Rec: 05/30/20 17:32 AW [id number]) Cervical Spine Range of Motion Cervical Spine Active Degrees Testing Position Sitting Flexion 40 Extension 40 Rotation Left 35 Rotation Right 40 Lateral Flexion Left 25 Lateral Flexion Right 25 ROM Limitations Soft Tissue Tightness Shoulder Goniometric Range of Motion Shoulder Right Active Flexion 155 Extension 30 Abduction 140 External Rotation at 90 degrees 60 Abduction Internal Rotation Behind Back (text) T10 Left Active Flexion 165 Extension 40 Abduction 165 External Rotation at 90 degrees 80 Abduction Internal Rotation Behind Back (text) T6 Shoulder ROM Limitations Shoulder ROM Limitations Pain Elbow/Forearm Range of Motion Elbow/Forearm ROM Limitations Comments Elbow AROM WNL PT-OP-L Special Tests Start: 05/29/20 13:11 Freq: Status: Active Protocol: Document 05/29/20 13:14 AW (Rec: 05/30/20 17:32 AW [id number]) Special Tests Shoulder Special Tests Bishop Tommy Impingement Test Results R (+) Comments mildly painful with scapular stabilization. Also performed infraspinatus MMT which was positive on the right side for pain and painful arc which was positive on the right side. Drop Arm Rotator Cuff Test Results R (+) Comments able to hold but with shoulder shrugging and pain PT-OP-M Strength Start: 05/29/20 13:11 Freq: Status: Active Protocol: Document 05/29/20 13:14 AW (Rec: 05/30/20 17:32 AW [id number]) Scapula Strength Scapula Manual Muscle Testing Right Comments 4/5 protraction bilaterally Shoulder Strength Shoulder Manual Muscle Testing Right Flexion 4 Good Extension 4+ Good+ Abduction (C5) 4 Good External Rotation 4 Good Internal Rotation 4 Good Left Flexion 5 Normal Extension 5 Normal Abduction (C5) 5 Normal External Rotation 4+ Good+ Internal Rotation 5 Normal Elbow/Forearm Strength Elbow and Forearm Manual Muscle Testing Right Comments Grossly 4+/5 bilaterally PT-OP-Q Treatments Start: 05/29/20 13:11 Freq: Status: Active Protocol: Document 07/22/20 09:51 SP (Rec: 07/22/20 10:43 SP [id number]) Cardio Equipment Upper Body Ergometer (UBE) Duration (Minutes) 6 RPM 55 Seat Position 9 Height 3 Other 3 min f/b (65 RPM >55 RPM) Gym Equipment Therapeutic Ball Prone Plank SB shld taps Exercise Details shld taps Ball Size/Color plank off knees (no ball today needed) Body Position Prone Reps/Duration 2x5 alternate BUE Comments cued core facilitation prone walk out Exercise Details prone walk out Ball Size/Color 45 cm/blue Body Position Prone Reps/Duration 3 min Comments walk out on hands (pelvis to knee) Therapeutic Exercises Prone Exercises child's pose Reps/Minutes 30 x2 Standing Exercises Scaption DB OH Side right Resistance Lv 3>2 TB Equipment Used strap over R shld w/LUE support for inf stabilization Reps/Minutes 2x8 Comments cued level shld alignment with mirror self corrrections leblanc walk Standing Exercise Name leblanc walk Side bilateral Resistance 5#, 8#, 10# 170 ft lap each Equipment Used db Comments to promote RC activation, good response feels supported shld ER band Side bilateral Equipment Used Lv 1 Reps/Minutes 2x5 Comments cued scap retract/depress, PPT to front- 45deg Rows, extension Standing Exercise Name rows, extension Resistance L3 band Reps/Minutes 2x10 Comments occasional scap stabilization during eccentric direction, inf/scap de PT-OP-R Modalities Start: 05/29/20 13:11 Freq: Status: Active Protocol: Document 05/31/20 08:15 LRN (Rec: 05/31/20 08:52 LRN [id number]) Ultrasound Therapy Treatment Right Anterior Shoulder Treatment Duration (minutes) 8 Patient Position Supine Coupling Medium Ultrasound Gel Frequency Setting (mHz) 3 Mode Setting Pulsed Duty Cycle 50% Intensity Setting (w/cm2) 1.0 PT-OP-T Assessment and Plan Start: 05/29/20 13:11 Freq: Status: Active Protocol: Document 07/22/20 09:51 SP (Rec: 07/22/20 10:43 SP [id number]) Physical Therapy Assessment Goals Four Impairment sleep Short Term Goal (STG) Pt will implement sleep positioning strategies for reduced pain and improved restfulness of sleep. PARTIALLY MET: pt tends to sleep prone with arms overhead and has been unable to change STG Duration 06/26/20 Three Impairment pt unable to participate in yoga and other desired activities due to pain Short Term Goal (STG) Pt will be independent with [facility] for support of therapy services provide in clinic MET 07/03/20 STG Duration 06/26/20 Director Software Goal (LTG) Pt will be able to tolerate prone and quadruped yoga poses with modifications without increasing pain LTG Duration 07/24/20 Two Impairment pt scores 43% impairment on quickDASH Short Term Goal (STG) Pt will score 35% impairment or lower for improved ability to return to work NOT MET: Pt now scores 63% impairment following recent dog attack. STG Duration 06/26/20 Custodial Goal (LTG) Pt will score 25% impairment or lower for improved ability to return to work LTG Duration 07/24/20 One Impairment ROM Short Term Goal (STG) Pt will improve pain-free R GH abduction to 150 or greater to demonstrate improved ability to participate in daily activities. PARTIALLY MET: Pt has 145 degrees active flexion. STG Duration 06/26/20 Custodial Goal (LTG) Pt will improve pain-free R GH abduction to 160 or greater to demonstrate improved ability to participate in daily activities. LTG Duration 07/24/20 Assessment Summary Assessment Pt tolerated strengthening well, occasional cuing for scap retract/depression and PPT awareness for stabilization. Pt improving in ROM, able to add DB against gravity scaption today, required strap for self assist inferior support with no adverse affect, able to perform shld taps in plank position without support of SB with occasional cuing for scap depression awareness. Physical Therapy Plan Frequency and Duration Frequency of Treatment 1-2x/week Duration of Treatment up to 15 visits per current [facility] authorization Plan of Care Start Date 07/17/20 Plan of Care End Date 09/11/20 Therapeutic Interventions Therapeutic Interventions Home Exercise Program,Joint Mobilizations,Manual Therapy, Neuromuscular Re-education, Patient/Caregiver Education, Soft Tissue Mobilization, Taping,Therapeutic Activities, Therapeutic Exercises Modalities Cold Pack/Ice Massage,Hot Packs Next Visit Focus/Plan Next Note Type Treatment Note Next Visit Plan Assess response to last tx: strengthening Tb, stabilization in prone and added SA scaption 2# DB. Continue to assess L anterolateral neck edema from dog attach 07/13, albert followed by physician. Continue to progress scapular control and overall RUE strength. taping for support PRN.
--- NOTE | 2020-08-05 11:15 | PT.OTN ---
Current Diagnoses Pain in right shoulder (08/05/20) Abnormal posture (08/05/20) Physical Therapy Treatment Note PT-OP-A Visit Information Start: 05/29/20 13:11 Freq: Status: Active Protocol: Document 08/05/20 10:32 SP (Rec: 08/05/20 11:27 SP [id number]) Out-Patient Physical Therapy Visit Information Visit Information Visit Type Treatment Note Visit Start Time 10:32 Visit Stop Time 11:15 Total Visit Minutes 43 Visit Number Number of CREW MANAGER Visits 2 PT-OP-B Current Condition Start: 05/29/20 13:11 Freq: Status: Active Protocol: Document 05/29/20 13:14 AW (Rec: 05/29/20 13:21 AW [id number]) Current Condition History of Current Condition Onset Date 1.5 years ago Current Complaints right shoulder pain History of Current Condition Pt reports gradual onset right shoulder pain worsening over the past 1.5 years. She has chronic neck pain but I just live with it. She states she has had a forced period of rest for her shoulder due to COVID stay at home order. 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 She fears she may not have a job to return to which is increasing her stress. Pt reports increased pain with heavy lifting and overhead movement. It feels like my arm is going to fall out of the socket. She takes tramadol during day and methocarbamol at night which help with her pain. Her pain gets as bad as 10/10 and is affecting her sleep. She is unable to sleep on her right side at all. She has had some difficulty with upper body dressing tasks but this has improved somewhat with rest over the last few months She lives alone with her rat terrier. She has been doing gentle yoga at home with modifications for her shoulder . Prior Treatments and Tests -PT for neck 20 years ago -MRI 12/09/19 1. Tendinosis and low to moderate grade articular and bursal surface partial- thickness tear involving distal supraspinatus and infraspinatus extending to musculotendinous junction. 2. Mild to moderate acromioclavicular joint and glenohumeral joint osteoarthritis. 3. Suggestion of focal superior anterior labral tear at 12 to 1:00 position. Suggestion of tendinosis and low-grade partial-thickness tear involving proximal intra- articular portion of long head biceps tendon. Future Testing and Treatments Planned Pt is considering surgery Treatment Goals Patient/Caregiver Goals Pt hopes to improve her upper body strength. Ultimately, she hopes to avoid surgery, but she expresses skepticism about the efficacy of physical therapy. 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 She noted improvement for 2 days with edema L anterolateral neck. Pt stated has been able to reposition her small pieces of furniture to vacuum behind it, the strengthening exercises are helping. PT-OP-F Manual Assessment Start: 05/29/20 13:11 Freq: Status: Active Protocol: Document 05/29/20 13:14 AW (Rec: 05/30/20 17:32 AW [id number]) Manual Assessments Soft Tissue Assessment Soft Tissue Mobility Assessment Tight and tender to palpation at insertion of infraspinatus/ supraspinatus. Tender and painful pec major and minor Joint Mobility Assessment Joint Mobility Assessment Reduced and painful posterior glides R GH joint PT-OP-H Neuro Start: 05/29/20 13:11 Freq: Status: Active Protocol: Document 05/29/20 13:14 AW (Rec: 05/30/20 17:32 AW [id number]) Sensation Evaluation Gross Sensation Gross Sensation Left UE Impaired,Right UE Impaired Sensation Description Numbness,Tingling,Pins & [place] Comments Summary Comments Pt reports history of bilateral UE paresthesias but that they have improved over the years. Minimal complaints at this time. Deep Tendon Reflex & Clonus Assessment Deep Tendon Reflex Bilateral Tricep Deep Tendon Reflex 1+ Diminished Bilateral Bicep Deep Tendon Reflex 2+ Normal PT-OP-J Posture/Palpation/Skin Start: 05/29/20 13:11 Freq: Status: Active Protocol: Document 05/29/20 13:14 AW (Rec: 05/30/20 17:32 AW [id number]) Posture Evaluation Position Sitting Evaluation View posterior and lateral Head/C-Spine Posture Extended Shoulder Posture (L) Rounded,(R) Rounded,(L) Forward,(R) Forward Scapula Posture (L) Protracted,(R) Protracted, (L) Winged,(R) Winged Arm Posture (L) Internally Rotated,(R) Internally Rotated Comments Posture Comments Winged and protracted scapulae at rest. Rounded shoulders bilaterally. PT-OP-K Range of Motion Start: 05/29/20 13:11 Freq: Status: Active Protocol: Document 05/29/20 13:14 AW (Rec: 05/30/20 17:32 AW [id number]) Cervical Spine Range of Motion Cervical Spine Active Degrees Testing Position Sitting Flexion 40 Extension 40 Rotation Left 35 Rotation Right 40 Lateral Flexion Left 25 Lateral Flexion Right 25 ROM Limitations Soft Tissue Tightness Shoulder Goniometric Range of Motion Shoulder Right Active Flexion 155 Extension 30 Abduction 140 External Rotation at 90 degrees 60 Abduction Internal Rotation Behind Back (text) T10 Left Active Flexion 165 Extension 40 Abduction 165 External Rotation at 90 degrees 80 Abduction Internal Rotation Behind Back (text) T6 Shoulder ROM Limitations Shoulder ROM Limitations Pain Elbow/Forearm Range of Motion Elbow/Forearm ROM Limitations Comments Elbow AROM WNL PT-OP-L Special Tests Start: 05/29/20 13:11 Freq: Status: Active Protocol: Document 05/29/20 13:14 AW (Rec: 05/30/20 17:32 AW [id number]) Special Tests Shoulder Special Tests Bishop Tommy Impingement Test Results R (+) Comments mildly painful with scapular stabilization. Also performed infraspinatus MMT which was positive on the right side for pain and painful arc which was positive on the right side. Drop Arm Rotator Cuff Test Results R (+) Comments able to hold but with shoulder shrugging and pain PT-OP-M Strength Start: 05/29/20 13:11 Freq: Status: Active Protocol: Document 05/29/20 13:14 AW (Rec: 05/30/20 17:32 AW [id number]) Scapula Strength Scapula Manual Muscle Testing Right Comments 4/5 protraction bilaterally Shoulder Strength Shoulder Manual Muscle Testing Right Flexion 4 Good Extension 4+ Good+ Abduction (C5) 4 Good External Rotation 4 Good Internal Rotation 4 Good Left Flexion 5 Normal Extension 5 Normal Abduction (C5) 5 Normal External Rotation 4+ Good+ Internal Rotation 5 Normal Elbow/Forearm Strength Elbow and Forearm Manual Muscle Testing Right Comments Grossly 4+/5 bilaterally PT-OP-Q Treatments Start: 05/29/20 13:11 Freq: Status: Active Protocol: Document 08/05/20 10:32 SP (Rec: 08/05/20 11:27 SP [id number]) Cardio Equipment Upper Body Ergometer (UBE) Duration (Minutes) 8 RPM 55 Seat Position 9 Height 3 Other 4 min f/b (60 RPM>55R PM last 2 min) Therapeutic Exercises Supine Exercises snow myrna on foam roller Side bilateral Resistance AROM Equipment Used foam roller Reps/Minutes 2x8 Comments cued allowing scap posterior range Standing Exercises OH Torch carry Standing Exercise Name rhythmic stabilization Side right Resistance 5# DB Reps/Minutes 170 ft lap Comments cued alignment OH over GH Jt. D1 ext, flex Standing Exercise Name add HEP Resistance TB 2 Reps/Minutes 2x10 Comments cued scap stab forward punch w/ band Standing Exercise Name x10, plus 1 serratus press Equipment Used L2 band Comments occasional scap stabilization during eccentric direction leblanc walk Standing Exercise Name leblanc walk Side bilateral Resistance 10# DB 170 ft x3 laps Equipment Used db Comments to promote RC activation, good response feels supported shld ER band Standing Exercise Name single, double UE Side bilateral Equipment Used Lv 2 Reps/Minutes 2x10 each Comments cued elbow 120deg flex, scap retract/depress, PPT to front- 45deg Rows, extension Standing Exercise Name rows, extension Resistance L3 band Reps/Minutes 2x10 Comments occasional scap stabilization during eccentric direction, inf/scap de PT-OP-R Modalities Start: 05/29/20 13:11 Freq: Status: Active Protocol: Document 05/31/20 08:15 LRN (Rec: 05/31/20 08:52 LRN [id number]) Ultrasound Therapy Treatment Right Anterior Shoulder Treatment Duration (minutes) 8 Patient Position Supine Coupling Medium Ultrasound Gel Frequency Setting (mHz) 3 Mode Setting Pulsed Duty Cycle 50% Intensity Setting (w/cm2) 1.0 PT-OP-T Assessment and Plan Start: 05/29/20 13:11 Freq: Status: Active Protocol: Document 08/05/20 10:32 SP (Rec: 08/05/20 11:27 SP [id number]) Physical Therapy Assessment Goals Four Impairment sleep Short Term Goal (STG) Pt will implement sleep positioning strategies for reduced pain and improved restfulness of sleep. PARTIALLY MET: pt tends to sleep prone with arms overhead and has been unable to change STG Duration 06/26/20 Three Impairment pt unable to participate in yoga and other desired activities due to pain Short Term Goal (STG) Pt will be independent with [facility] for support of therapy services provide in clinic MET 07/03/20 STG Duration 06/26/20 Assisted Goal (LTG) Pt will be able to tolerate prone and quadruped yoga poses with modifications without increasing pain LTG Duration 07/24/20 Two Impairment pt scores 43% impairment on quickDASH Short Term Goal (STG) Pt will score 35% impairment or lower for improved ability to return to work NOT MET: Pt now scores 63% impairment following recent dog attack. STG Duration 06/26/20 Youth Nutritional Monitor Goal (LTG) Pt will score 25% impairment or lower for improved ability to return to work LTG Duration 07/24/20 One Impairment ROM Short Term Goal (STG) Pt will improve pain-free R GH abduction to 150 or greater to demonstrate improved ability to participate in daily activities. PARTIALLY MET: Pt has 145 degrees active flexion. STG Duration 06/26/20 Assisted Goal (LTG) Pt will improve pain-free R GH abduction to 160 or greater to demonstrate improved ability to participate in daily activities. LTG Duration 07/24/20 Assessment Summary Assessment Pt is progressing in dynamic strengthening added to HEP, able to increase resistance with Tb and reps today. Occasional cuing for scap and trunk posture with use of mirror for self feedback corrections. Physical Therapy Plan Frequency and Duration Frequency of Treatment 1-2x/week Duration of Treatment up to 15 visits per current MD authorization Plan of Care Start Date 07/17/20 Plan of Care End Date 09/11/20 Therapeutic Interventions Therapeutic Interventions Home Exercise Program,Joint Mobilizations,Manual Therapy, Neuromuscular Re-education, Patient/Caregiver Education, Soft Tissue Mobilization, Taping,Therapeutic Activities, Therapeutic Exercises Modalities Cold Pack/Ice Massage,Hot Packs Next Visit Focus/Plan Next Note Type Treatment Note Next Visit Plan Assess response to last tx: serratus punch, D1 D2 flex/ ext Tb and foam roller use. Next tx assess cable and continued prone plank HEP. Continue to assess L anterolateral neck edema from dog attach 07/13, been followed by physician. *PN and update POC in 3 treatments.
--- NOTE | 2020-08-20 11:15 | PT.OTN ---
Current Diagnoses Pain in right shoulder (08/20/20) Abnormal posture (08/20/20) Physical Therapy Treatment Note PT-OP-A Visit Information Start: 05/29/20 13:11 Freq: Status: Active Protocol: Document 08/20/20 10:35 SP (Rec: 08/20/20 15:10 SP [id number]) Out-Patient Physical Therapy Visit Information Visit Information Visit Type Treatment Note Visit Note 2 more visits approved. Visit Start Time 10:35 Visit Stop Time 11:15 Total Visit Minutes 40 Visit Number 15/ Number of MECHANIC RECOVERY Visits 3 PT-OP-B Current Condition Start: 05/29/20 13:11 Freq: Status: Active Protocol: Document 05/29/20 13:14 AW (Rec: 05/29/20 13:21 AW [id number]) Current Condition History of Current Condition Onset Date 1.5 years ago Current Complaints right shoulder pain History of Current Condition Pt reports gradual onset right shoulder pain worsening over the past 1.5 years. She has chronic neck pain but I just live with it. She states she has had a forced period of rest for her shoulder due to COVID stay at home order. 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 She fears she may not have a job to return to which is increasing her stress. Pt reports increased pain with heavy lifting and overhead movement. It feels like my arm is going to fall out of the socket. She takes tramadol during day and methocarbamol at night which help with her pain. Her pain gets as bad as 10/10 and is affecting her sleep. She is unable to sleep on her right side at all. She has had some difficulty with upper body dressing tasks but this has improved somewhat with rest over the last few months She lives alone with her rat terrier. She has been doing gentle yoga at home with modifications for her shoulder . Prior Treatments and Tests -PT for neck 20 years ago -MRI 12/09/19 1. Tendinosis and low to moderate grade articular and bursal surface partial- thickness tear involving distal supraspinatus and infraspinatus extending to musculotendinous junction. 2. Mild to moderate acromioclavicular joint and glenohumeral joint osteoarthritis. 3. Suggestion of focal superior anterior labral tear at 12 to 1:00 position. Suggestion of tendinosis and low-grade partial-thickness tear involving proximal intra- articular portion of long head biceps tendon. Future Testing and Treatments Planned Pt is considering surgery Treatment Goals Patient/Caregiver Goals Pt hopes to improve her upper body strength. Ultimately, she hopes to avoid surgery, but she expresses skepticism about the efficacy of physical therapy. 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 Patient Reported Progress Improving PT-OP-F Manual Assessment Start: 05/29/20 13:11 Freq: Status: Active Protocol: Document 05/29/20 13:14 AW (Rec: 05/30/20 17:32 AW [id number]) Manual Assessments Soft Tissue Assessment Soft Tissue Mobility Assessment Tight and tender to palpation at insertion of infraspinatus/ supraspinatus. Tender and painful pec major and minor Joint Mobility Assessment Joint Mobility Assessment Reduced and painful posterior glides R GH joint PT-OP-H Neuro Start: 05/29/20 13:11 Freq: Status: Active Protocol: Document 05/29/20 13:14 AW (Rec: 05/30/20 17:32 AW [id number]) Sensation Evaluation Gross Sensation Gross Sensation Left UE Impaired,Right UE Impaired Sensation Description Numbness,Tingling,Pins & [place] Comments Summary Comments Pt reports history of bilateral UE paresthesias but that they have improved over the years. Minimal complaints at this time. Deep Tendon Reflex & Clonus Assessment Deep Tendon Reflex Bilateral Tricep Deep Tendon Reflex 1+ Diminished Bilateral Bicep Deep Tendon Reflex 2+ Normal PT-OP-J Posture/Palpation/Skin Start: 05/29/20 13:11 Freq: Status: Active Protocol: Document 05/29/20 13:14 AW (Rec: 05/30/20 17:32 AW [id number]) Posture Evaluation Position Sitting Evaluation View posterior and lateral Head/C-Spine Posture Extended Shoulder Posture (L) Rounded,(R) Rounded,(L) Forward,(R) Forward Scapula Posture (L) Protracted,(R) Protracted, (L) Winged,(R) Winged Arm Posture (L) Internally Rotated,(R) Internally Rotated Comments Posture Comments Winged and protracted scapulae at rest. Rounded shoulders bilaterally. PT-OP-K Range of Motion Start: 05/29/20 13:11 Freq: Status: Active Protocol: Document 05/29/20 13:14 AW (Rec: 05/30/20 17:32 AW [id number]) Cervical Spine Range of Motion Cervical Spine Active Degrees Testing Position Sitting Flexion 40 Extension 40 Rotation Left 35 Rotation Right 40 Lateral Flexion Left 25 Lateral Flexion Right 25 ROM Limitations Soft Tissue Tightness Shoulder Goniometric Range of Motion Shoulder Right Active Flexion 155 Extension 30 Abduction 140 External Rotation at 90 degrees 60 Abduction Internal Rotation Behind Back (text) T10 Left Active Flexion 165 Extension 40 Abduction 165 External Rotation at 90 degrees 80 Abduction Internal Rotation Behind Back (text) T6 Shoulder ROM Limitations Shoulder ROM Limitations Pain Elbow/Forearm Range of Motion Elbow/Forearm ROM Limitations Comments Elbow AROM WNL PT-OP-L Special Tests Start: 05/29/20 13:11 Freq: Status: Active Protocol: Document 05/29/20 13:14 AW (Rec: 05/30/20 17:32 AW [id number]) Special Tests Shoulder Special Tests Bishop Tommy Impingement Test Results R (+) Comments mildly painful with scapular stabilization. Also performed infraspinatus MMT which was positive on the right side for pain and painful arc which was positive on the right side. Drop Arm Rotator Cuff Test Results R (+) Comments able to hold but with shoulder shrugging and pain PT-OP-M Strength Start: 05/29/20 13:11 Freq: Status: Active Protocol: Document 05/29/20 13:14 AW (Rec: 05/30/20 17:32 AW [id number]) Scapula Strength Scapula Manual Muscle Testing Right Comments 4/5 protraction bilaterally Shoulder Strength Shoulder Manual Muscle Testing Right Flexion 4 Good Extension 4+ Good+ Abduction (C5) 4 Good External Rotation 4 Good Internal Rotation 4 Good Left Flexion 5 Normal Extension 5 Normal Abduction (C5) 5 Normal External Rotation 4+ Good+ Internal Rotation 5 Normal Elbow/Forearm Strength Elbow and Forearm Manual Muscle Testing Right Comments Grossly 4+/5 bilaterally PT-OP-Q Treatments Start: 05/29/20 13:11 Freq: Status: Active Protocol: Document 08/20/20 10:35 SP (Rec: 08/20/20 15:10 SP [id number]) Cardio Equipment Upper Body Ergometer (UBE) Duration (Minutes) 8 RPM 55 Seat Position 9 Height 3 Other 4 min f/b (60 RPM>55R PM last 2 min) Therapeutic Exercises Supine Exercises TB ex Supine Exercise Name supine bridge over tajik ball : FF, D2 flex, HABD Side bilateral Resistance TB #3 Equipment Used blue SB Reps/Minutes 2x10 each direction Comments cued proper roll out supine ball, wide base, core fac and slow move control Prone Exercises plank shld tap off feet tall Reps/Minutes x10 alternate BUE Comments cued PPT, back alignment and PPT, glut fac forward plank Prone Exercise Name off knees/ elbows, tall plank hands/ feet Reps/Minutes 30 each Comments cued PPT, back alignment and PPT, glut fac Sidelying Exercises side plank Sidelying Exercise Name off knees Side bilateral Reps/Minutes 20 sec each side Comments cued alignment trunk,scap, serratus press Standing Exercises OH Torch carry Standing Exercise Name rhythmic stabilization Side right Resistance 5# DB Reps/Minutes 170 ft lap x2 laps with brief rest between Comments cued alignment OH over GH Jt. PT-OP-R Modalities Start: 05/29/20 13:11 Freq: Status: Active Protocol: Document 05/31/20 08:15 LRN (Rec: 05/31/20 08:52 LRN [id number]) Ultrasound Therapy Treatment Right Anterior Shoulder Treatment Duration (minutes) 8 Patient Position Supine Coupling Medium Ultrasound Gel Frequency Setting (mHz) 3 Mode Setting Pulsed Duty Cycle 50% Intensity Setting (w/cm2) 1.0 PT-OP-T Assessment and Plan Start: 05/29/20 13:11 Freq: Status: Active Protocol: Document 08/20/20 10:35 SP (Rec: 08/20/20 15:10 SP [id number]) Physical Therapy Assessment Goals Four Impairment sleep Short Term Goal (STG) Pt will implement sleep positioning strategies for reduced pain and improved restfulness of sleep. PARTIALLY MET: pt tends to sleep prone with arms overhead and has been unable to change STG Duration 06/26/20 Three Impairment pt unable to participate in yoga and other desired activities due to pain Short Term Goal (STG) Pt will be independent with HEP for support of therapy services provide in clinic MET 07/03/20 STG Duration 06/26/20 Group Home Goal (LTG) Pt will be able to tolerate prone and quadruped yoga poses with modifications without increasing pain LTG Duration 07/24/20 Two Impairment pt scores 43% impairment on quickDASH Short Term Goal (STG) Pt will score 35% impairment or lower for improved ability to return to work NOT MET: Pt now scores 63% impairment following recent dog attack. STG Duration 06/26/20 Group Home Goal (LTG) Pt will score 25% impairment or lower for improved ability to return to work LTG Duration 07/24/20 One Impairment ROM Short Term Goal (STG) Pt will improve pain-free R GH abduction to 150 or greater to demonstrate improved ability to participate in daily activities. PARTIALLY MET: Pt has 145 degrees active flexion. STG Duration 06/26/20 [employer] Goal (LTG) Pt will improve pain-free R GH abduction to 160 or greater to demonstrate improved ability to participate in daily activities. LTG Duration 07/24/20 Assessment Summary Assessment Pt is progressing in strength, able to initiate WB activities and unstable supine TB strengthening today with no adverse affect, challenging but doesn't hurt. Cued for set up and proper stabilization during ext today . Did not g irena for home yet. assess next tx. Physical Therapy Plan Frequency and Duration Frequency of Treatment 1-2x/week Duration of Treatment up to 15 visits per current [facility] authorization Plan of Care Start Date 07/17/20 Plan of Care End Date 09/11/20 Therapeutic Interventions Therapeutic Interventions Home Exercise Program,Joint Mobilizations,Manual Therapy, Neuromuscular Re-education, Patient/Caregiver Education, Soft Tissue Mobilization, Taping,Therapeutic Activities, Therapeutic Exercises Modalities Cold Pack/Ice Massage,Hot Packs Next Visit Focus/Plan Next Note Type Treatment Note Next Visit Plan Pt has 2 more visits approved. Assess response to last tx: plank f/side supine glut bridge UE TB ex and torch carry. Next tx assess cable for self gym program wants to do at fitness center and continued prone plank HEP. *PN and update POC in 2 treatments, 2 more visits approved.
--- NOTE | 2020-08-26 09:05 | PT-OP ANOTE ---
Pt cancelled appt, think ate something bad with + emesis. Has 2 more appts scheduled. Assess if need make more appts next tx.
--- NOTE | 2020-08-28 16:50 | PT.OTN ---
Current Diagnoses Pain in right shoulder (08/20/20) Abnormal posture (08/20/20) Physical Therapy Treatment Note PT-OP-A Visit Information Start: 05/29/20 13:11 Freq: Status: Active Protocol: Document 08/28/20 16:35 AW (Rec: 08/28/20 16:50 AW [id number]) Out-Patient Physical Therapy Visit Information Visit Information Visit Type Treatment Note Visit Note Pt was informed she is responsible for obtaining [place] auth to continue after one more visit. Visit Start Time 13:45 Visit Stop Time 14:30 Total Visit Minutes 45 Visit Number 16/17 Number of GROUP CARE WORKER Visits 0 Evaluation Information Evaluation Date 05/29/20 PT-OP-B Current Condition Start: 05/29/20 13:11 Freq: Status: Active Protocol: Document 05/29/20 13:14 AW (Rec: 05/29/20 13:21 AW [id number]) Current Condition History of Current Condition Onset Date 1.5 years ago Current Complaints right shoulder pain History of Current Condition Pt reports gradual onset right shoulder pain worsening over the past 1.5 years. She has chronic neck pain but I just live with it. She states she has had a forced period of rest for her shoulder due to COVID stay at home order. 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 She fears she may not have a job to return to which is increasing her stress. Pt reports increased pain with heavy lifting and overhead movement. It feels like my arm is going to fall out of the socket. She takes tramadol during day and methocarbamol at night which help with her pain. Her pain gets as bad as 10/10 and is affecting her sleep. She is unable to sleep on her right side at all. She has had some difficulty with upper body dressing tasks but this has improved somewhat with rest over the last few months She lives alone with her rat terrier. She has been doing gentle yoga at home with modifications for her shoulder . Prior Treatments and Tests -PT for neck 20 years ago -MRI 12/09/19 1. Tendinosis and low to moderate grade articular and bursal surface partial- thickness tear involving distal supraspinatus and infraspinatus extending to musculotendinous junction. 2. Mild to moderate acromioclavicular joint and glenohumeral joint osteoarthritis. 3. Suggestion of focal superior anterior labral tear at 12 to 1:00 position. Suggestion of tendinosis and low-grade partial-thickness tear involving proximal intra- articular portion of long head biceps tendon. Future Testing and Treatments Planned Pt is considering surgery Treatment Goals Patient/Caregiver Goals Pt hopes to improve her upper body strength. Ultimately, she hopes to avoid surgery, but she expresses skepticism about the efficacy of physical therapy. 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 PT-OP-F Manual Assessment Start: 05/29/20 13:11 Freq: Status: Active Protocol: Document 05/29/20 13:14 AW (Rec: 05/30/20 17:32 AW [id number]) Manual Assessments Soft Tissue Assessment Soft Tissue Mobility Assessment Tight and tender to palpation at insertion of infraspinatus/ supraspinatus. Tender and painful pec major and minor Joint Mobility Assessment Joint Mobility Assessment Reduced and painful posterior glides R GH joint PT-OP-H Neuro Start: 05/29/20 13:11 Freq: Status: Active Protocol: Document 05/29/20 13:14 AW (Rec: 05/30/20 17:32 AW [id number]) Sensation Evaluation Gross Sensation Gross Sensation Left UE Impaired,Right UE Impaired Sensation Description Numbness,Tingling,Pins & [place] Comments Summary Comments Pt reports history of bilateral UE paresthesias but that they have improved over the years. Minimal complaints at this time. Deep Tendon Reflex & Clonus Assessment Deep Tendon Reflex Bilateral Tricep Deep Tendon Reflex 1+ Diminished Bilateral Bicep Deep Tendon Reflex 2+ Normal PT-OP-J Posture/Palpation/Skin Start: 05/29/20 13:11 Freq: Status: Active Protocol: Document 05/29/20 13:14 AW (Rec: 05/30/20 17:32 AW [id number]) Posture Evaluation Position Sitting Evaluation View posterior and lateral Head/C-Spine Posture Extended Shoulder Posture (L) Rounded,(R) Rounded,(L) Forward,(R) Forward Scapula Posture (L) Protracted,(R) Protracted, (L) Winged,(R) Winged Arm Posture (L) Internally Rotated,(R) Internally Rotated Comments Posture Comments Winged and protracted scapulae at rest. Rounded shoulders bilaterally. PT-OP-K Range of Motion Start: 05/29/20 13:11 Freq: Status: Active Protocol: Document 05/29/20 13:14 AW (Rec: 05/30/20 17:32 AW [id number]) Cervical Spine Range of Motion Cervical Spine Active Degrees Testing Position Sitting Flexion 40 Extension 40 Rotation Left 35 Rotation Right 40 Lateral Flexion Left 25 Lateral Flexion Right 25 ROM Limitations Soft Tissue Tightness Shoulder Goniometric Range of Motion Shoulder Right Active Flexion 155 Extension 30 Abduction 140 External Rotation at 90 degrees 60 Abduction Internal Rotation Behind Back (text) T10 Left Active Flexion 165 Extension 40 Abduction 165 External Rotation at 90 degrees 80 Abduction Internal Rotation Behind Back (text) T6 Shoulder ROM Limitations Shoulder ROM Limitations Pain Elbow/Forearm Range of Motion Elbow/Forearm ROM Limitations Comments Elbow AROM WNL PT-OP-L Special Tests Start: 05/29/20 13:11 Freq: Status: Active Protocol: Document 05/29/20 13:14 AW (Rec: 05/30/20 17:32 AW [id number]) Special Tests Shoulder Special Tests Bishop Tommy Impingement Test Results R (+) Comments mildly painful with scapular stabilization. Also performed infraspinatus MMT which was positive on the right side for pain and painful arc which was positive on the right side. Drop Arm Rotator Cuff Test Results R (+) Comments able to hold but with shoulder shrugging and pain PT-OP-M Strength Start: 05/29/20 13:11 Freq: Status: Active Protocol: Document 05/29/20 13:14 AW (Rec: 05/30/20 17:32 AW [id number]) Scapula Strength Scapula Manual Muscle Testing Right Comments 4/5 protraction bilaterally Shoulder Strength Shoulder Manual Muscle Testing Right Flexion 4 Good Extension 4+ Good+ Abduction (C5) 4 Good External Rotation 4 Good Internal Rotation 4 Good Left Flexion 5 Normal Extension 5 Normal Abduction (C5) 5 Normal External Rotation 4+ Good+ Internal Rotation 5 Normal Elbow/Forearm Strength Elbow and Forearm Manual Muscle Testing Right Comments Grossly 4+/5 bilaterally PT-OP-Q Treatments Start: 05/29/20 13:11 Freq: Status: Active Protocol: Document 08/28/20 16:35 AW (Rec: 08/28/20 16:50 AW [email or web address]) Therapeutic Exercises Prone Exercises Y's Prone Exercise Name Y's Side bilateral Resistance 1# Equipment Used db Reps/Minutes 3 sec hold, 10 reps x 2 GH extension Prone Exercise Name GH extension Side bilateral Resistance 1# Equipment Used db Reps/Minutes 3 sec hold, 10 reps x 2 Manual Therapy Treatment Soft Tissue Mobilization rhomboid self mob Body Location rhomboid self mob Intensity/Depth Moderate Body Position Hooklying Comments used small tennis ball and regular tennis ball at right rhomboids to address trigger point while pt actively flexing and rotating right arm upper traps, lev scap, cervical paraspinals Body Location upper traps, lev scap, cervical paraspinals, occipital release Mobilization Type Cross-Friction,Myofascial Release Intensity/Depth Moderate Body Position Hooklying Joint Mobilizations scapulothoracic Joint scapulothoracic Direction inferior, adduction Grade III Body Position Prone Reps/Duration 3 min thoracic extension Direction P/A Grade III Body Position Prone Reps/Duration 3 min PT-OP-R Modalities Start: 05/29/20 13:11 Freq: Status: Active Protocol: Document 05/31/20 08:15 LRN (Rec: 05/31/20 08:52 LRN [id number]) Ultrasound Therapy Treatment Right Anterior Shoulder Treatment Duration (minutes) 8 Patient Position Supine Coupling Medium Ultrasound Gel Frequency Setting (mHz) 3 Mode Setting Pulsed Duty Cycle 50% Intensity Setting (w/cm2) 1.0 PT-OP-T Assessment and Plan Start: 05/29/20 13:11 Freq: Status: Active Protocol: Document 08/28/20 16:35 AW (Rec: 08/28/20 16:50 AW [email or web address]) Physical Therapy Assessment Goals Four Impairment sleep Short Term Goal (STG) Pt will implement sleep positioning strategies for reduced pain and improved restfulness of sleep. PARTIALLY MET: pt tends to sleep prone with arms overhead and has been unable to change STG Duration 06/26/20 Three Impairment pt unable to participate in yoga and other desired activities due to pain Short Term Goal (STG) Pt will be independent with HEP for support of therapy services provide in clinic MET 07/03/20 STG Duration 06/26/20 Long-Term Goal (LTG) Pt will be able to tolerate prone and quadruped yoga poses with modifications without increasing pain LTG Duration 07/24/20 Two Impairment pt scores 43% impairment on quickDASH Short Term Goal (STG) Pt will score 35% impairment or lower for improved ability to return to work NOT MET: Pt now scores 63% impairment following recent dog attack. STG Duration 06/26/20 Long-Term Goal (LTG) Pt will score 25% impairment or lower for improved ability to return to work LTG Duration 07/24/20 One Impairment ROM Short Term Goal (STG) Pt will improve pain-free R GH abduction to 150 or greater to demonstrate improved ability to participate in daily activities. PARTIALLY MET: Pt has 145 degrees active flexion. STG Duration 06/26/20 Long-Term Goal (LTG) Pt will improve pain-free R GH abduction to 160 or greater to demonstrate improved ability to participate in daily activities. LTG Duration 07/24/20 Assessment Summary Assessment Pt arrives today with increased pain presentation and specific pain at medial border of right scapula. Treatment focused on manual therapy and scapulothoracic mobility with pt responding well to self-mobilization. Pt understands she is responsible for obtaining [place] [employer] authorization for more visits (one remaining on current auth ). Physical Therapy Plan Frequency and Duration Frequency of Treatment 1-2x/week Duration of Treatment up to 15 visits per current VA authorization Plan of Care Start Date 07/17/20 Plan of Care End Date 09/11/20 Therapeutic Interventions Therapeutic Interventions Home Exercise Program,Joint Mobilizations,Manual Therapy, Neuromuscular Re-education, Patient/Caregiver Education, Soft Tissue Mobilization, Taping,Therapeutic Activities, Therapeutic Exercises Modalities Cold Pack/Ice Massage,Hot Packs Next Visit Focus/Plan Next Note Type Treatment Note Next Visit Plan Pt has 1 more visits approved. Assess response to last tx: scapulothoracic mobility Next tx assess cable for self gym program wants to do at fitness center and continued prone plank HEP. *PN and update POC in 2 treatments, 2 more visits approved.
--- NOTE | 2020-09-04 14:02 | PT.OTN ---
Current Diagnoses Pain in right shoulder (09/04/20) Abnormal posture (09/04/20) Physical Therapy Treatment Note PT-OP-A Visit Information Start: 05/29/20 13:11 Freq: Status: Active Protocol: Document 09/04/20 13:45 AW (Rec: 09/04/20 14:02 AW [email or web address]) Out-Patient Physical Therapy Visit Information Visit Information Visit Type Discharge Summary Visit Start Time 13:00 Visit Stop Time 13:45 Total Visit Minutes 45 Visit Number Evaluation Information Evaluation Date 05/29/20 PT-OP-B Current Condition Start: 05/29/20 13:11 Freq: Status: Active Protocol: Document 05/29/20 13:14 AW (Rec: 05/29/20 13:21 AW [id number]) Current Condition History of Current Condition Onset Date 1.5 years ago Current Complaints right shoulder pain History of Current Condition Pt reports gradual onset right shoulder pain worsening over the past 1.5 years. She has chronic neck pain but I just live with it. She states she has had a forced period of rest for her shoulder due to COVID stay at home order. 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 She fears she may not have a job to return to which is increasing her stress. Pt reports increased pain with heavy lifting and overhead movement. It feels like my arm is going to fall out of the socket. She takes tramadol during day and methocarbamol at night which help with her pain. Her pain gets as bad as 10/10 and is affecting her sleep. She is unable to sleep on her right side at all. She has had some difficulty with upper body dressing tasks but this has improved somewhat with rest over the last few months She lives alone with her rat terrier. She has been doing gentle yoga at home with modifications for her shoulder . Prior Treatments and Tests -PT for neck 20 years ago -MRI 12/09/19 1. Tendinosis and low to moderate grade articular and bursal surface partial- thickness tear involving distal supraspinatus and infraspinatus extending to musculotendinous junction. 2. Mild to moderate acromioclavicular joint and glenohumeral joint osteoarthritis. 3. Suggestion of focal superior anterior labral tear at 12 to 1:00 position. Suggestion of tendinosis and low-grade partial-thickness tear involving proximal intra- articular portion of long head biceps tendon. Future Testing and Treatments Planned Pt is considering surgery Treatment Goals Patient/Caregiver Goals Pt hopes to improve her upper body strength. Ultimately, she hopes to avoid surgery, but she expresses skepticism about the efficacy of physical therapy. 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 Patient Reported Progress Improving Patient Questionnaires Quick Dash- Upper Extremity Quick Dash UE Score 27 Quick Dash UE Impairment 20 to 39% Impaired (Score 20- 39) PT-OP-F Manual Assessment Start: 05/29/20 13:11 Freq: Status: Active Protocol: Document 05/29/20 13:14 AW (Rec: 05/30/20 17:32 AW [id number]) Manual Assessments Soft Tissue Assessment Soft Tissue Mobility Assessment Tight and tender to palpation at insertion of infraspinatus/ supraspinatus. Tender and painful pec major and minor Joint Mobility Assessment Joint Mobility Assessment Reduced and painful posterior glides R GH joint PT-OP-H Neuro Start: 05/29/20 13:11 Freq: Status: Active Protocol: Document 05/29/20 13:14 AW (Rec: 05/30/20 17:32 AW [id number]) Sensation Evaluation Gross Sensation Gross Sensation Left UE Impaired,Right UE Impaired Sensation Description Numbness,Tingling,Pins & [place] Comments Summary Comments Pt reports history of bilateral UE paresthesias but that they have improved over the years. Minimal complaints at this time. Deep Tendon Reflex & Clonus Assessment Deep Tendon Reflex Bilateral Tricep Deep Tendon Reflex 1+ Diminished Bilateral Bicep Deep Tendon Reflex 2+ Normal PT-OP-J Posture/Palpation/Skin Start: 05/29/20 13:11 Freq: Status: Active Protocol: Document 05/29/20 13:14 AW (Rec: 05/30/20 17:32 AW [id number]) Posture Evaluation Position Sitting Evaluation View posterior and lateral Head/C-Spine Posture Extended Shoulder Posture (L) Rounded,(R) Rounded,(L) Forward,(R) Forward Scapula Posture (L) Protracted,(R) Protracted, (L) Winged,(R) Winged Arm Posture (L) Internally Rotated,(R) Internally Rotated Comments Posture Comments Winged and protracted scapulae at rest. Rounded shoulders bilaterally. PT-OP-K Range of Motion Start: 05/29/20 13:11 Freq: Status: Active Protocol: Document 09/04/20 13:45 AW (Rec: 09/04/20 14:02 AW [email or web address]) Shoulder Goniometric Range of Motion Shoulder Right Active Testing Position Sitting Flexion 160 Abduction 160 Shoulder ROM Limitations Shoulder ROM Limitations Pain Comments Pain greatly reduced since eval PT-OP-L Special Tests Start: 05/29/20 13:11 Freq: Status: Active Protocol: Document 05/29/20 13:14 AW (Rec: 05/30/20 17:32 AW [id number]) Special Tests Shoulder Special Tests [place] Impingement Test Results R (+) Comments mildly painful with scapular stabilization. Also performed infraspinatus MMT which was positive on the right side for pain and painful arc which was positive on the right side. Drop Arm Rotator Cuff Test Results R (+) Comments able to hold but with shoulder shrugging and pain PT-OP-M Strength Start: 05/29/20 13:11 Freq: Status: Active Protocol: Document 05/29/20 13:14 AW (Rec: 05/30/20 17:32 AW [id number]) Scapula Strength Scapula Manual Muscle Testing Right Comments 4/5 protraction bilaterally Shoulder Strength Shoulder Manual Muscle Testing Right Flexion 4 Good Extension 4+ Good+ Abduction (C5) 4 Good External Rotation 4 Good Internal Rotation 4 Good Left Flexion 5 Normal Extension 5 Normal Abduction (C5) 5 Normal External Rotation 4+ Good+ Internal Rotation 5 Normal Elbow/Forearm Strength Elbow and Forearm Manual Muscle Testing Right Comments Grossly 4+/5 bilaterally PT-OP-Q Treatments Start: 05/29/20 13:11 Freq: Status: Active Protocol: Document 09/04/20 13:45 AW (Rec: 09/04/20 14:02 AW [email or web address]) Cardio Equipment Upper Body Ergometer (UBE) Duration (Minutes) 6 RPM 55 Seat Position 9 Height 3 Other f/b Gym Equipment Therapeutic Ball Prone on knees SB Ys Ball Size/Color blue Body Position Prone Reps/Duration 2x5 Comments cued PPT, core facilitation palms facing each midline Prone Plank SB shld taps Exercise Details shld taps Ball Size/Color with walkout and pushup plus protraction Body Position Prone Reps/Duration 2x5 alternate BUE Comments cued core facilitation Therapeutic Exercises Standing Exercises db rows Standing Exercise Name db rows Side bilateral Resistance 8# Equipment Used db Reps/Minutes 15 reps x 2 Comments cued GH ER/palms up Manual Therapy Treatment Soft Tissue Mobilization upper traps, lev scap, cervical paraspinals Body Location upper traps, lev scap, cervical paraspinals, occipital release Mobilization Type Cross-Friction,Myofascial Release Intensity/Depth Moderate Body Position Sitting Joint Mobilizations thoracic extension Direction P/A Grade III Body Position Prone Reps/Duration 3 min PT-OP-R Modalities Start: 05/29/20 13:11 Freq: Status: Active Protocol: Document 05/31/20 08:15 LRN (Rec: 05/31/20 08:52 LRN [id number]) Ultrasound Therapy Treatment Right Anterior Shoulder Treatment Duration (minutes) 8 Patient Position Supine Coupling Medium Ultrasound Gel Frequency Setting (mHz) 3 Mode Setting Pulsed Duty Cycle 50% Intensity Setting (w/cm2) 1.0 PT-OP-T Assessment and Plan Start: 05/29/20 13:11 Freq: Status: Active Protocol: Document 09/04/20 13:45 AW (Rec: 09/04/20 14:02 AW [email or web address]) Physical Therapy Assessment Impairments Impairments Functional Activities,Pain, Posture,ROM,Sensation,Soft Tissue Mobility,Strength Goals Four Impairment sleep Short Term Goal (STG) Pt will implement sleep positioning strategies for reduced pain and improved restfulness of sleep. PARTIALLY MET: pt tends to sleep prone with arms overhead and has been unable to change STG Duration 06/26/20 [employer] Goal (LTG) 09/04/20: Pt reports improved sleep with fewer interruptions due to pain Three Impairment pt unable to participate in yoga and other desired activities due to pain Short Term Goal (STG) Pt will be independent with [facility] for support of therapy services provide in clinic MET 07/03/20 STG Duration 06/26/20 Jail Goal (LTG) Pt will be able to tolerate prone and quadruped yoga poses with modifications without increasing pain 09/04/20: PARTIALLY MET - pt participating more frequently but still with modifications in quadruped LTG Duration 09/11/20 Two Impairment pt scores 43% impairment on quickDASH Short Term Goal (STG) Pt will score 35% impairment or lower for improved ability to return to work NOT MET: Pt now scores 63% impairment following recent dog attack. STG Duration 06/26/20 Jail Goal (LTG) Pt will score 25% impairment or lower for improved ability to return to work 09/04/20 - PARTIALLY MET - Pt scores 27% LTG Duration 09/11/20 One Impairment ROM Short Term Goal (STG) Pt will improve pain-free R GH abduction to 150 or greater to demonstrate improved ability to participate in daily activities. PARTIALLY MET: Pt has 145 degrees active flexion. STG Duration 06/26/20 Jail Goal (LTG) Pt will improve pain-free R GH abduction to 160 or greater to demonstrate improved ability to participate in daily activities. 09/04/20 MET LTG Duration 09/11/20 Progress Towards Goals Progress Towards Goals Progressing Toward Goals Progress Comments Pt reports improved pain symptoms. She has overall improved ROM. Functional activities greatly improved. Pt is now discharging due to lack of continued [employer] authorization but states she may be back if she elects to have surgery. Assessment Summary Assessment Treatment focused on HEP to maintain therapy gains. Pt is independent with her exercises and reports improved pain symptoms as well as improved sleep. Pt will discharge for now and understands she will need a new authorization if she plans to return. Physical Therapy Plan Therapeutic Interventions Therapeutic Interventions Home Exercise Program,Joint Mobilizations,Manual Therapy, Neuromuscular Re-education, Patient/Caregiver Education, Soft Tissue Mobilization, Taping,Therapeutic Activities, Therapeutic Exercises Modalities Cold Pack/Ice Massage,Hot Packs Discharge Physical Therapy Discharge Reasons Patient Request Discharge Comments Pt reports improved pain symptoms. She has overall improved ROM. Functional activities greatly improved. Pt is now discharging due to lack of continued [employer] authorization but states she may be back if she elects to have surgery.
== END 2020-10-07 09:57 ==
LOC: PHYS 13:00
PROVIDERS: Family Provider Nutritionist; PCP Physician Assistant; Referring Provider Physician Assistant; Visit Provider Physician Assistant
DX: M25.511 Pain in right shoulder (principal); R29.3 Abnormal posture
CPT/HCPCS: 97035; 97110; 97140; 97161

== ENCOUNTER → 2021-11-19 11:02 | Outpatient (CLI) | payer OTHER, SELFPAY ==
--- NOTE | 2021-11-19 11:06 | DI.MRI.S_ITS ---
PROCEDURE: MR LUMBAR SPINE WO CON INDICATIONS: Radiculopathy, lumbar region TECHNIQUE: Noncontrast sagittal T1 spin echo and T2 fast echo, sagittal STIR, axial T1 and T2 fast spin echo through the lumbar spine. In cases with scoliosis, additional coronal T2 fast spin echo may be performed. COMPARISON: [facility], CR, XR LUMBAR SPINE WITH OBLIQUES PLUS FLEXION EXTENSION, 11/11/2021, 16:00. FINDINGS: Image quality: Excellent. Alignment and Curvature: There is normal bony alignment. Bone Marrow: Modic type 2 reactive endplate changes noted adjacent to the T12-L1, L1-L2, L2-L3, L3-L4, L4-L5 and L5-S1 discs. No acute vertebral body compression fractures. Spinal Cord: Conus medullaris terminates at the L1 level. Visualized cord demonstrates normal signal and size. Paraspinous Soft Tissues: No paravertebral masses. T12-L1: Normal appearance. L1-L2: Normal appearance. L2-L3: Loss of disc signal and height. Mild to moderate diffuse disc bulge. Mild bilateral facet hypertrophy. Mild narrowing of the central canal. Mild bilateral neural foraminal narrowing. No neural compression. L3-L4: Loss of disc signal and height. Mild, diffuse disc bulge. Mild bilateral facet hypertrophy. Mild narrowing of the central canal. Moderate right and mild left neural foraminal narrowing. No neural compression. L4-L5: Loss of disc signal and slight loss of disc height. Mild to moderate diffuse disc bulge. Mild bilateral facet hypertrophy. Mild narrowing of the central canal. Mild right and severe left neural foraminal narrowing with compression of the exiting left L4 nerve root. L5-S1: Loss of disc signal. Mild, diffuse disc bulge. Mild bilateral facet hypertrophy. No central stenosis. Mild right neural foraminal narrowing. No neural compression. Fissure noted in the posterior annulus. IMPRESSION: 1. Multilevel degenerative disc disease. 2. Multilevel facet arthropathy. 3. No severe central canal narrowing. 4. Severe left L4-L5 neural foraminal narrowing with compression of the exiting left L4 nerve root. 5. L5-S1 disc annulus fissure. Dictated by: Ann-Marie Lara MD, PhD on 11/19/2021 at 12:58 Approved by: Ann-Marie Lara MD, PhD on 11/19/2021 at 13:05
== END ==
PROVIDERS: Family Provider Nutritionist; PCP Physician Assistant; Referring Provider Physical Medicine & Rehabilitation Pain Medicine; Visit Provider Physical Medicine & Rehabilitation Pain Medicine
DX: M51.16 Intervertebral disc disorders with radiculopathy, lumbar region (principal); M51.17 Intervertebral disc disorders with radiculopathy, lumbosacral region; M47.26 Other spondylosis with radiculopathy, lumbar region; M47.27 Other spondylosis with radiculopathy, lumbosacral region; M48.061 Spinal stenosis, lumbar region without neurogenic claudication; M48.07 Spinal stenosis, lumbosacral region
CPT/HCPCS: 72148

== ENCOUNTER → 2025-08-12 07:09 | Outpatient (CLI) | payer OTHER, SELFPAY ==
--- NOTE | 2025-08-12 07:14 | DI.MRI.S_ITS ---
PROCEDURE: MR CERVICAL SPINE WO CON INDICATIONS: PAIN TECHNIQUE: Noncontrast sagittal T1 spin echo and T2 fast spin echo, sagittal STIR, foraminal oblique sagittal T2 fast spin echo, and axial gradient echo or T2 fast spin echo through the cervical spine. COMPARISON: [facility], MR, MR CERVICAL SPINE WITHOUT CONTRAST, 01/21/2021, 17:10. [facility], CR, XR CERVICAL SPINE WITH FLEXION EXTENSION, 06/26/2025, 13:07. FINDINGS: Image quality: Excellent. Alignment and Curvature: There is overall straightening of the normal cervical lordosis. There is minimal retrolisthesis seen at C4-C5. Bone Marrow: Marrow demonstrates normal overall signal. Spinal Cord: Visualized spinal cord has normal size and signal. No cerebellar tonsillar herniation. Paraspinous Soft Tissues: No paravertebral masses. Prevertebral soft tissues are normal in thickness. C2-C3: The disc height is well-preserved. Loss of disc signal is seen at this level. A mild degree of generalized disc osteophyte complex is seen. There is at least moderate right-sided and mild left-sided facet hypertrophy. There is moderate right- sided and no left-sided neural foraminal narrowing. No central canal narrowing is seen. These imaging findings have progressed compared to the prior study. C3-C4: [id number] loss of disc height and disc signal can be seen. Moderate generalized disc osteophyte complex is seen. There is a superimposed central disc osteophyte protrusion. Moderate facet joint hypertrophy is seen. There is mild right-sided and at least moderate left-sided neural foraminal narrowing. Moderate central canal narrowing is seen. There is associated mass effect upon the ventral spinal cord. These imaging findings have progressed compared to the prior study. C4-C5: At least moderate loss of disc height and disc signal can be seen. Moderate loss of disc height is seen. Loss of disc signal is seen. There is a superimposed central/left disc osteophyte protrusion. Moderate facet joint hypertrophy is seen. There is at least moderate right-sided and moderate left-sided neural narrowing. At least moderate central canal narrowing is seen, with ventral cord flattening, as on series 3, image 24. These imaging findings have progressed compared to the prior study. C5-C6: [id number] loss of disc height and disc signal can be seen. Moderate disc osteophyte complex is seen, which is eccentric to the left. There is a superimposed central/left disc osteophyte protrusion. Mild facet joint hypertrophy is seen. Mild bilateral neural foraminal narrowing is seen. Mild to moderate central canal narrowing is seen, with mild mass effect upon the ventral spinal cord. There is mild progression compared to 2021. C6-C7: Moderate loss of disc height is seen. Loss of disc signal is seen. Moderate generalized disc osteophyte complex is seen. There is a superimposed central disc osteophyte protrusion. Mild facet joint hypertrophy is seen. Moderate bilateral neural foraminal narrowing is seen. Mild to moderate central canal narrowing can be seen. These degenerative changes are worse than in 2021. C7-T1: Mild loss of disc height is seen. Loss of disc signal is seen. A mild degree of generalized disc osteophyte complex is seen. No significant neural foraminal or central canal narrowing can be seen. When comparison is made with the prior images, these findings are similar. IMPRESSION: Multiple levels of significant cervical spine degenerative change can be seen, which are progressed at several levels compared to 202. Dictated by: Dawson Nava M.D. on 08/13/2025 at 11:00 Approved by: Dawson Nava M.D. on 08/13/2025 at 11:07
== END ==
LOC: MRI 07:10
PROVIDERS: Family Provider Nutritionist; PCP Physician Assistant; Referring Provider Physician Assistant; Visit Provider Physician Assistant Surgical
DX: M47.812 Spondylosis without myelopathy or radiculopathy, cervical region (principal); R20.2 Paresthesia of skin
CPT/HCPCS: 72141